=== PATIENT | female | born 1985 | race Caucasian/White ===

== ENCOUNTER 2017-11-27 05:54 | Emergency (ER) | payer OTHER, SELFPAY ==
[2017-11-27 05:55] VITALS: BP 118/80; PULSE 81; RESP 20; TEMP 36.8; O2SAT 100; BMI 29.5
--- NOTE | 2017-11-27 06:02 | ED.VISSUMM ---
- ER Visit Summary Date of Service: 11/27/17 Chief Complaint: [] Esophagus spasm History of Present Illness: The patient is a 32 F with a history of esophagus spasms 1 time per month. She has a sharp substernal chest pain. She took a Valium with minimal relief. She has been seen here frequently for this in the past and GI cocktail always helps her. Comes in for further evaluation. Denies any cardiac PE or dissection risk factors. Denies other medical problems. Current severity is mild to moderate. Physical Examination: [] Vital signs reviewed General: Well-nourished well-developed Head: Normocephalic atraumatic Eyes: Pupils equal round and reactive to light extraocular movements intact ENT: TMs clear no hemotympanum no trauma Neck: Nontender full range of motion Cardiovascular: Regular rate rhythm no murmurs normal S1-S2 Respiratory: No distress clear to auscultation bilaterally chest nontender Abdomen: Soft nontender nondistended normal bowel sounds no masses Back: Nontender no CVA tenderness Extremities: Nontender active range of motion ?4 extremities no trauma Skin: Normal color no trauma Neuro alert oriented cranial nerves II through XII intact normal strength sensation reflexes Test Results: [] Emergency Department Course and Treatment: [] Given GI cocktail pain is resolved after treatment. Will be given viscous lidocaine and will turkey picker Maalox at home which should help her in the future. Treatment Plan: [] Disposition: [] Impression: [] Esophageal spasm recurrent This note was generated with [employer] dictation software. It may contain incorrect words, spelling, and punctuation that were not noted in review of the chart prior to signing ED Disposition - Plan for ED Patient: Disposition: Home or Assisted Living Chief Complaint: Other, Pain/Inj Instructions: ED Spasm Esophageal Prescriptions: Lidocaine 2% Viscous [Xylocaine Viscous] 15 ml PO TID PRN PRN 3 Days udc PRN Reason: Pain Referrals: Buck Welch MD [Primary Care Provider] -
--- NOTE | 2017-11-27 06:06 | DCINST.ED_ITS ---
ED Disposition - Plan for ED Patient: Disposition: Home or Assisted Living Chief Complaint: Other, Pain/Inj Instructions: ED Spasm Esophageal Prescriptions: Lidocaine 2% Viscous [Xylocaine Viscous] 15 ml PO TID PRN PRN 3 Days udc PRN Reason: Pain Referrals: Buck Welch MD [Primary Care Provider] -
[2017-11-27 06:38] VITALS: BP 116/79; PULSE 75; RESP 16; O2SAT 100
== END 2017-11-27 06:41 | disposition home or self-care (01) ==
PROVIDERS: Emergency Provider Emergency Medicine; Family Provider Family Medicine; PCP Family Medicine
DX: K22.4 Dyskinesia of esophagus (principal); Z79.899 Other long term (current) drug therapy
CPT/HCPCS: 99283

== ENCOUNTER 2018-02-11 07:15 | Emergency (ER) | payer OTHER, SELFPAY ==
[2018-02-11 07:15] VITALS: BP 140/91; PULSE 93; RESP 18; TEMP 37.1; O2SAT 99; BMI 29.5
--- NOTE | 2018-02-11 07:32 | ED.DCSUM_ITS ---
- ER Visit Summary Date of Service: 02/11/18 Chief Complaint: Esophageal spasm History of Present Illness: The patient is a 32 F who presents with pain in her epigastric area. Started about an hour and a half ago. Sharp and nonradiating. She has had nausea with vomiting. No diarrhea or constipation. Denies any urinary symptoms. She has a history of esophageal spasm and has had many times before. She tried viscous lidocaine at home but it did not help. Denies any other symptoms. Physical Examination: Vital signs reviewed. HEENT exam unremarkable. Heart is regular rate and rhythm without murmurs. Lungs are clear to auscultation. Abdomen is soft with tenderness in the epigastric area. Extremities reveal no edema. Skin exam normal. Neurologic exam normal. Test Results: None performed Emergency Department Course and Treatment: Patient was given Zofran, Valium and a GI cocktail. She feels much better. She has a follow-up appointment with her PCP today. She will ask them about a referral to a GI specialist for an endoscopy or a possible upper GI series as she has not had one of these in the past Treatment Plan: [] Disposition: Discharge Impression: Esophageal spasm This note was generated with [employer] dictation software. It may contain incorrect words, spelling, and punctuation that were not noted in review of the chart prior to signing ED Disposition - Plan for ED Patient: Chief Complaint: Other, Pain/Inj Referrals: Buck Welch MD [Primary Care Provider] -
[2018-02-11] MEDS: Ondansetron ODT 4 MG Tablet 8 MG PO (07:57)
[2018-02-11] MEDS: diazePAM 5 MG Tablet PO (08:43)
--- NOTE | 2018-02-11 09:24 | ED.DEP ---
ED Disposition - Plan for ED Patient: Disposition: Home or Assisted Living Chief Complaint: Other, Pain/Inj Instructions: ED Spasm Esophageal Referrals: Buck Welch MD [Primary Care Provider] -
[2018-02-11 10:03] VITALS: BP 108/61; PULSE 66; PULSE 68; RESP 18; O2SAT 97
== END 2018-02-11 10:05 | disposition home or self-care (01) ==
PROVIDERS: Emergency Provider Emergency Medicine; Family Provider Family Medicine; PCP Family Medicine
DX: K22.4 Dyskinesia of esophagus (principal); Z72.0 Tobacco use
CPT/HCPCS: 99283

== ENCOUNTER → 2018-03-13 08:25 | Outpatient (CLI) | payer OTHER, SELFPAY ==
--- NOTE | 2018-03-13 08:25 | DT_ITS ---
This patient was seen during an EMR downtime March 11, 2018 - March 18, 2018. This patient may have a combination of paper and electronic documentation or all paper documentation. All documentation is viewable within the e-chart portion of [employer] for each patient visit.
--- NOTE | 2018-03-13 08:50 | RAD_ITS ---
STUDY: AIR-CONTRAST ESOPHAGRAM STUDY REASON FOR EXAM: Female, 32 years old. PAINFUL ESOPHAGEAL SPASMS X 1YEAR, GETTING WORSE RADIATION DOSAGE (If Supplied By Facility): CTDIvol = ( ) mGy, DLP = ( ) mGycm FLUOROSCOPY TIME (if supplied): (0:30) minutes/seconds, 12 images. TECHNIQUE: Barium pill swallow with sips of water is performed at the beginning of the study without difficulty. Multiple barium swallows were performed under fluoroscopic monitoring. Multiple views of the esophagus, the upper stomach were performed. COMPARISON: None. FINDINGS: Barium pill swallow with sips of water is performed at the beginning of the study without difficulty. The esophagus appears normal in size and shape it shows unremarkable mucosal pattern. There is no evidence of hiatal hernia or abnormal vascular compression. RAD/Esophagus Only IMPRESSION: Unremarkable study. Electronically Signed: Elio Wagoner MD at 13:19 EDT Tel , Service support ,
== END ==
PROVIDERS: Family Provider Family Medicine; PCP Family Medicine; Visit Provider Nurse Practitioner Adult Health
DX: K22.4 Dyskinesia of esophagus (principal)
CPT/HCPCS: 74220

== ENCOUNTER 2018-05-06 13:05 | Emergency (ER) | payer OTHER, SELFPAY ==
[2018-05-06 13:06] VITALS: BP 123/78; PULSE 123; RESP 16; TEMP 36.8; O2SAT 98; BMI 28.0
[2018-05-06] MEDS: 0.9% Normal Saline 1,000 ML 1000 ML IV ×2 (13:42→14:59)
[2018-05-06] MEDS: Ketorolac 30 MG/ML Syringe IV (13:43)
[2018-05-06] MEDS: Ondansetron 4 MG/2 ML Vial IV (13:43)
[2018-05-06] MEDS: Diphenoxylate/Atrop 1 Tablet PO (15:09)
[2018-05-06] MEDS: proMETHazine 25 MG/ML Syringe 6.25 MG IV (15:09)
[2018-05-06 15:11] VITALS: BP 120/72; PULSE 69; RESP 18; O2SAT 99
[2018-05-06 15:41] LABS: Red Blood Cells-Urine 0 SEEN /hpf (0-5)
[2018-05-06 15:54] LABS: Color, Urine Yellow (Yellow); Glucose, Dipstick Normal (Normal); Ketone-Dipstick 5 mg/dl (Negative); Leukocyte Esterase-Dipstick 25 /ul (Negative); Nitrite-Dipstick Negative (Negative); Occult Blood-Urine 10 /ul (Negative); Protein-Dipstick 30 mg/dl (Negative); Urine Clarity Cloudy (Clear); Urine Urobilinogen Normal (Normal)
[2018-05-06 15:59] LABS: Urine Bilirubin Dipstick 1 mg/dL (Negative)
[2018-05-06 16:20] LABS: Bacteria 2+ /hpf (None Seen); Mucous, Urine 4+ /hpf (<or=2+); Squamous Epithelial Cells - UA 5-10 SEEN /hpf (5-10); White Blood Cells 0-5 SEEN /hpf (0-5)
--- NOTE | 2018-05-06 16:44 | ED.DCSUM_ITS ---
- ER Visit Summary Date of Service: 05/06/18 Chief Complaint: Vomiting and diarrhea History of Present Illness: The patient is a [address] Welch. She reports that she has vomiting and diarrhea that began this morning. States she is vomited approximate 10 times. No blood or emesis. She had 10 episodes of watery diarrhea. No blood in her stools or black tarry stools. She reports that she has crampy diffuse abdominal pain Zeta 10 at worst and 7-10 currently. Is worsened by nothing relieved by nothing. She denies any dysuria or frequency. Last menstrual was 1 week ago. No vaginal bleeding or discharge. Patient reports that her son was sick with a similar complaints 2 days ago. Has not been camping out of the country. No possible bad food exposure. Does not drink well water. No recent antibiotic use. Physical Examination: Vitals: Stable. Afebrile. General: Well-nourished and well-developed. Head: Normocephalic atraumatic. Neck: Supple, no lymphadenopathy. No JVD. Nontender. Cardiovascular: Regular rate and rhythm. No murmurs. Respiratory: No respiratory distress. Clear to auscultation bilaterally. Abdominal: Soft, mild diffuse tenderness to palpation, nondistended, normal bowel sounds. No guarding, rebound, or peritoneal signs. Back: Nontender. Extremities: Nontender, no edema. Skin: Normal color, no rash. Neurologic: Alert and oriented ?3. Cranial nerves II through XII are intact. Normal strength and sensation. Psych: Normal affect. Test Results: UA is negative. Emergency Department Course and Treatment: Patient was given 2 L normal saline. She was given Zofran, Phenergan, Toradol IV. She was given Lomotil p.o. Her heart rate has gone from the 120s to the 60s. She is resting comfortably. Treatment Plan: Patient will be discharged with Zofran. Instructed to follow- up her primary care physician in 1-2 days if not improving. Return to the emergency department for any worsening symptoms. Disposition: To home in improved and stable condition. Impression: 1. Vomiting/diarrhea. This note was generated with [employer] software. It may contain incorrect words, spelling, and punctuation that were not noted in review of the chart prior to signing ED Disposition - Plan for ED Patient: Chief Complaint: Nausea/Vomiting/Diarrhea Instructions: ED Food Poison Or Gastroenteritis Prescriptions: Ondansetron [Zofran Odt] 4 mg PO Q8H PRN PRN #10 tablet PRN Reason: Nausea Referrals: Buck Welch MD [Primary Care Provider] - 1-2 Days if not improving
== END 2018-05-06 16:56 | disposition home or self-care (01) ==
PROVIDERS: Emergency Provider Emergency Medicine; Family Provider Family Medicine; PCP Family Medicine
DX: R11.2 Nausea with vomiting, unspecified (principal); R19.7 Diarrhea, unspecified; R10.84 Generalized abdominal pain; F17.200 Nicotine dependence, unspecified, uncomplicated
CPT/HCPCS: 81001; 96361; 96374; 96375; 99284; J7030; A4216; J2405

== ENCOUNTER 2018-07-20 02:04 | Emergency (ER) | payer OTHER, SELFPAY ==
[2018-07-20 02:06] VITALS: BP 121/89; PULSE 120; RESP 20; TEMP 36.9; O2SAT 96; BMI 28.5
--- NOTE | 2018-07-20 02:20 | RAD_ITS ---
STUDY: X-RAY - LEFT ANKLE REASON FOR EXAM: Female, 32 years old. Injury TECHNIQUE: 3 view(s) of the ankle. COMPARISON: None. FINDINGS: There is mild swelling of the ankle but no acute fractures or dislocations. The ankle mortise and the subtalar joints are within normal limits. RAD/Ankle min 3 Views IMPRESSION: No fracture. Mild ankle swelling. Electronically Signed: Gordon Nobles MD at 2:35 EDT Tel , Service support ,
--- NOTE | 2018-07-20 02:40 | ED.VISSUMM ---
- ER Visit Summary Date of Service: 07/20/18 Chief Complaint: [] Injury to left ankle History of Present Illness: The patient is a 32 F [] who was walking up the steps and caught her foot and felt a pop in her left lateral ankle. It happened 2 hours ago. Hurts to move. She has been limping. No previous injury. No home treatment. Physical Examination: [] Vital signs reviewed General: Well-nourished well-developed Head: Normocephalic atraumatic Eyes: Pupils equal round and reactive to light extraocular movements intact ENT: TMs clear no hemotympanum no trauma Neck: Nontender full range of motion Cardiovascular: Regular rate rhythm no murmurs normal S1-S2 Respiratory: No distress clear to auscultation bilaterally chest nontender Abdomen: Soft nontender nondistended normal bowel sounds no masses Back: Nontender no CVA tenderness Extremities: Tenderness isolated to the left lateral malleolus with decreased range of motion of the ankle secondary to pain. No swelling or deformity. No foot pain. Achilles intact Skin: Normal color no trauma Neuro alert oriented cranial nerves II through XII intact normal strength sensation reflexes Test Results: [] Emergency Department Course and Treatment: [] X-ray of the ankle negative. Given ibuprofen ice and Aircast. At this time I think she sprained her ankle Treatment Plan: [] Disposition: [] Impression: [] Left ankle sprain This note was generated with [employer] dictation software. It may contain incorrect words, spelling, and punctuation that were not noted in review of the chart prior to signing ED Disposition - Plan for ED Patient: Chief Complaint: Lower Extremity Injury Referrals: Buck Welch MD [Primary Care Provider] -
--- NOTE | 2018-07-20 02:41 | ED.DEP ---
ED Disposition - Plan for ED Patient: Disposition: Home or Assisted Living Chief Complaint: Lower Extremity Injury Instructions: ED Sprain Ankle W X Ray Referrals: Buck Welch MD [Primary Care Provider] -
[2018-07-20] MEDS: Ibuprofen 400 MG Tablet 800 MG PO (02:57)
[2018-07-20 03:01] VITALS: RESP 18
== END 2018-07-20 03:03 | disposition home or self-care (01) ==
PROVIDERS: Emergency Provider Emergency Medicine; Family Provider Family Medicine; PCP Family Medicine
DX: S93.402A Sprain of unspecified ligament of left ankle, initial encounter (principal); X58.XXXA Exposure to other specified factors, initial encounter; Y93.01 Activity, walking, marching and hiking; Y92.9 Unspecified place or not applicable; Z72.0 Tobacco use
CPT/HCPCS: 73610; 99283

== ENCOUNTER 2018-08-26 15:37 | Emergency (ER) | payer OTHER, SELFPAY ==
[2018-08-26 15:39] VITALS: BP 125/88; PULSE 94; RESP 18; TEMP 37.1; O2SAT 97; BMI 28.6
--- NOTE | 2018-08-26 15:48 | ED.VISSUMM ---
- ER Visit Summary Date of Service: 08/26/18 Chief Complaint: Nosebleed History of Present Illness: The patient is a 33 F presents to the emergency department nosebleed. Patient states that it started suddenly about 30 minutes ago. She has no history of nosebleed. She does not take anticoagulants. She denies any injury. She has not had any recent upper respiratory symptoms. She states just started to bleed. She thought was coming out of both sides. She thinks the left side stopped, but the right side continues to bleed. Physical Examination: Exam is relatively unremarkable. The patient does have epistaxis that appears to be coming from the right right naris. There is no evidence of posterior bleed. There is no significant active bleeding. Neck is supple. Oropharynx is widely patent. Rest of exam unremarkable. Test Results: [] Emergency Department Course and Treatment: Plan was to Place Afrin on a cotton pledget into the naris, but the patient had spontaneously stopped bleeding. She was given intranasal Afrin and a clamp was placed. She was observed. She had no further bleeding. I did not reinspect the nose, and I do not see any active bleeding. At this time, the patient is not on anticoagulants. She has no trauma. I do not see a visible vessel that would require cautery. I do feel that she is safe for discharge. She will be given Afrin to continue twice a day for the next 5 days. She will also be given a nasal clamp if she has any rebleeding. She will be given outpatient ENT follow-up as needed. Treatment Plan: [] Disposition: Discharge Impression: Epistaxis-resolved This note was generated with [employer] dictation software. It may contain incorrect words, spelling, and punctuation that were not noted in review of the chart prior to signing ED Disposition - Plan for ED Patient: Chief Complaint: Nosebleed Instructions: Nosebleed Referrals: Juan East MD [STAFF PHYSICIAN] - As Needed
[2018-08-26] MEDS: Oxymetazoline 0.05% 1 SPRAY SPRAY.BTL 2 SPRAY NASAL (16:11)
--- NOTE | 2018-08-26 16:20 | NURSING ---
BLEEDING HAS STOPPED. WILL CONTINUE TO MONITOR.
[2018-08-26 16:26] VITALS: RESP 16
--- NOTE | 2018-08-26 16:27 | ED.RN ---
REVIEWED D/C INSTRUCTIONS, FOLLOW UP CARE, AND S/S THAT WOULD WARRANT A RETURN TO THE ED WITH PT. PT VERBALIZED AN UNDERSTANDING AND DENIES FURTHER QUESTIONS FOR THIS RN. PT SKIN P/W/D, RESP EVEN AND UNLABORED, PT A&O X 3, NO DISTRESS NOTED. PT AMBULATED OUT OF ED, GAIT STEADY.
== END 2018-08-26 16:28 | disposition home or self-care (01) ==
LOC: ED 16:08
PROVIDERS: Emergency Provider Emergency Medicine; Family Provider Family Medicine; PCP Family Medicine
DX: R04.0 Epistaxis (principal); Z72.0 Tobacco use
CPT/HCPCS: 30901; 99282

== ENCOUNTER → 2019-04-02 | Outpatient (CLI) | payer OTHER, SELFPAY ==
[2019-04-02 09:24] VITALS: BMI 29.2
[2019-04-02 10:01] LABS: Absolute Lymphocyte Count 1.71 X10^3/ul (0.83-4.51); Absolute Neutrophil Count 3.7 X10^3/uL (2.0-7.7); Basophil# 0.02 X10^3/uL; Basophil% 0.3 % (0-1); Eosinophils% 1.6 % (0-5); Hematocrit 44.4 % (37-47); Hemoglobin 15.3 g/dl (12.0-15.0); Lymphocyte # 1.71 X10^3/ul (4.0); Lymphocyte % 27.8 % (19-41); Mean Corp Hgb Conc 34.5 g/gl (32-36); Mean Corpuscular Hgb 31.2 pg (27.0-32.0); Mean Corpuscular Volume 90.4 fL (81-99); Mean Platelet Vol. 10.7 fl (6.2-12.0); Monocyte# 0.63 X10^3/uL; Monocyte% 10.2 % (0-10); Neutrophil # 3.68 X10^3/uL (2.7-7.7); Neutrophil % 59.9 % (47-70); POSITIVE COUNT NO; POSITIVE DIFFERENTIAL NO; POSITIVE MORPHOLOGY NO; Platelet Count 240 K/mm3 (150-450); RBC Distribution Width CV 13.4 % (11.6-14.6); RBC Distribution Width SD 44.3 fl (35.1-43.9); Red Blood Count 4.91 M/mm3 (4.2-5.4); White Blood Count 6.2 K/mm3 (4.4-11.0)
== END | disposition home or self-care (01) ==
LOC: PAVLAB 09:48
PROVIDERS: Family Provider Family Medicine; PCP Family Medicine; Referring Provider Nurse Practitioner Women's Health; Visit Provider Nurse Practitioner Women's Health
DX: N92.0 Excessive and frequent menstruation with regular cycle (principal)
CPT/HCPCS: 36415; 84443; 85025

== ENCOUNTER → 2019-04-03 | Outpatient (CLI) | payer OTHER, SELFPAY ==
[2019-04-02 09:24] VITALS: BMI 29.2
--- NOTE | 2019-04-03 14:03 | US_ITS ---
STUDY: ULTRASOUND TRANSVAGINAL CLINICAL: Female, 33 years old. TECHNIQUE: Transvaginal COMPARISON: None. FINDINGS: Transvaginal and transabdominal ultrasound of the pelvis were obtained. The uterus measures 8.4 x 5.1 x 3.8 cm. A small fibroid measures 1.2 x 1.2 cm subserosal in location posteriorly. The endometrium thickness measures 1 cm. The right ovary measures 4.6 x 2.5 x 2.6 cm with multiple follicles the largest is 2.3 x 1 cm. The left ovary measures 3 x 2.2 x 1.3 cm with small follicles. No evidence of adnexal masses noted. No free fluid in the cul-de-sac US/Pelvic (Non ) IMPRESSION: Negative study except for small small fibroid. Electronically Signed: Rima Palacio, at 13:10 EDT Tel , Service support ,
--- NOTE | 2019-04-03 14:03 | US_ITS ---
STUDY: ULTRASOUND TRANSVAGINAL CLINICAL: Female, 33 years old. TECHNIQUE: Transvaginal COMPARISON: None. FINDINGS: Transvaginal and transabdominal ultrasound of the pelvis were obtained. The uterus measures 8.4 x 5.1 x 3.8 cm. A small fibroid measures 1.2 x 1.2 cm subserosal in location posteriorly. The endometrium thickness measures 1 cm. The right ovary measures 4.6 x 2.5 x 2.6 cm with multiple follicles the largest is 2.3 x 1 cm. The left ovary measures 3 x 2.2 x 1.3 cm with small follicles. No evidence of adnexal masses noted. No free fluid in the cul-de-sac US/Transvaginal Non- IMPRESSION: Negative study except for small small fibroid. Electronically Signed: Rima Palacio, at 13:10 EDT Tel , Service support ,
== END | disposition home or self-care (01) ==
PROVIDERS: Family Provider Family Medicine; PCP Family Medicine; Referring Provider Nurse Practitioner Women's Health; Visit Provider Nurse Practitioner Women's Health
DX: N92.0 Excessive and frequent menstruation with regular cycle (principal)
CPT/HCPCS: 76830; 76856; 93976

== ENCOUNTER → 2019-05-27 | Outpatient (CLI) | payer OTHER, SELFPAY ==
[2019-05-27 09:44] VITALS: BMI 29.2
[2019-05-30 14:27] LABS: HPV APTIMA, High Risk Negative (Negative)
== END | disposition home or self-care (01) ==
LOC: LABSPEC 16:29
PROVIDERS: Family Provider Family Medicine; PCP Family Medicine; Referring Provider Nurse Practitioner Women's Health; Visit Provider Nurse Practitioner Women's Health
DX: Z12.4 Encounter for screening for malignant neoplasm of cervix (principal)
CPT/HCPCS: 87624; 88175; G0145

== ENCOUNTER 2019-07-15 05:50 | Emergency (ER) | payer OTHER, SELFPAY ==
[2019-05-27 09:44] VITALS: BMI 29.2
[2019-07-15 05:51] VITALS: BP 138/95; PULSE 91; RESP 18; TEMP 36.7; O2SAT 100; BMI 28.1
--- NOTE | 2019-07-15 06:00 | ED.VIS.GEN ---
History of Present Illness Informant: Patient Narrative: She presents with esophageal spasm. She stated that approximately 6 hours ago she started having some burning pain in her esophagus region. She feels in the front and the back as well. This is similar to previous esophageal spasms that she is been dealing with for years. She tried a benzodiazepine as well as hycosamine change to have symptoms. She vomited twice at home. Current severity is mild to moderate. She has seen GI as well as her family doctor for this in the past. This is a long-standing diagnosis. <Matti Benitez - Last Filed: 07/15/19 06:50> <Carmencita Doyle - Last Filed: 07/15/19 09:30> Chief Complaint: Nausea/Vomiting - Past Medical History (1) Abnormal uterine bleeding Status: Acute Comment: discussed options, failing aygestin, switch to ocp for now and plan [facility] BS (2) Dysmenorrhea Status: Acute Comment: discussed options, failing aygestin, switch to ocp for now and plan [facility] BS <Matti Benitez - Last Filed: 07/15/19 06:50> Past Medical History Prior records reviewed: Yes Past Medical History: - - See problem list, esophageal spasm Surgical History: noncontributory Smoking Status: Current every day smoker Alcohol: None Drugs: None <Matti Benitez - Last Filed: 07/15/19 06:50> <Carmencita Doyle - Last Filed: 07/15/19 09:30> - Allergies and Home Meds Allergies/Adverse Reactions: Allergies Penicillins Allergy (Verified 07/15/19 05:53) Swelling Sulfa (Sulfonamide Antibiotics) Allergy (Verified 07/15/19 05:53) Swelling Primary Care Physician: Buck Welch MD [Primary Care Provider] - Review of Systems General: Denies: Chills, Fever, Sweats Eyes: Denies: Visual changes - bilaterally, Diplopia ENT: Denies: Rhinorrhea, Sore throat Cardiovascular: Reports: Chest pain. Denies: Palpitations Respiratory: Denies: Dyspnea, Cough, Dyspnea on exertion Gastrointestinal: Reports: Nausea, Vomiting. Denies: Abdominal pain, Diarrhea, Melena, Hematochezia Genitourinary: Denies: Dysuria, Hematuria, Frequency Musculoskeletal: Reports: Back pain. Denies: Extremity Pain Skin: Denies: Rash, Wounds Neurological: Denies: Headache, Weakness, Numbness <Matti Benitez - Last Filed: 07/15/19 06:50> Physical Exam Vital Signs/Narrative: Vital Signs Temp Pulse Resp BP Pulse Ox 07/15/19 05:51 98.0 F 91 18 138/95 H 100 General: Well nourished, Well developed, No Acute Distress Head: Normocephalic, Atraumatic Eyes: Perrl, EOMI ENT: Moist mucous membranes, No rhinorrhea Neck: Supple, Nontender Cardiovascular: Regular rate, Regular rhythm, No murmurs Respiratory: No distress, CTA bilaterally, Chest nontender Abdomen: Soft, Nontender, Nondistended, Normal bowel sounds Back: Nontender, Normal Inspection Extremities: Nontender, No edema Skin: Normal color, No rash Neurological: Alert, Oriented x3, Cranial nerves II-XII grossly intact, Normal Strength, Normal Sensation Psychological: Normal affect, Normal Mood <Matti Benitez - Last Filed: 07/15/19 06:50> Vital Signs/Narrative: Vital Signs Temp Pulse Resp BP Pulse Ox 07/15/19 05:51 98.0 F 91 18 138/95 H 100 <Carmencita Doyle - Last Filed: 07/15/19 09:30> Diagnostic/Tx/Re-eval - Medical Decision Making Requested GI cocktail and Zofran. These were given. On reevaluation the patient felt better initially but then her symptoms came back. She was then given a dose of morphine and Ativan. The patient will be reevaluated by the oncoming morning physician. At this time I still think she has esophageal spasms <Matti Benitez - Last Filed: 07/15/19 06:50> Chest X-Ray - ED: 1 View, Read by ED Physician, Normal, Heart, Lungs, Mediastinum, Bony Structures, No Acute Disease 07/15/19 07:50 Chest 1 View (Portable) [RAD] Stat Laboratory Results 07/15/19 07/15/19 07/15/19 08:07 08:07 08:07 WBC 10.4 RBC 4.54 Hgb 13.5 Hct 41.0 MCV 90.3 MCH 29.7 MCHC 32.9 RDW Std Deviation 40.5 RDW Coeff of Júnior 12.4 Plt Count 261 MPV 11.1 Immature Gran % (Auto) 0.400 Neut % (Auto) 76.2 H Lymph % (Auto) 15.[address] [place] % (Auto) 6.8 Eos % (Auto) 1.0 Baso % (Auto) 0.3 Absolute Neuts (auto) 7.9 H Absolute Lymphs (auto) 1.59 Nucleated RBC % 0 D-Dimer Quant (PE/DVT) 0.41 Sodium 141 Potassium 3.8 Chloride 105 Carbon Dioxide 27.0 Anion Gap 9 BUN 13 Creatinine 0.79 Estim Creat Clear Calc 89.10 Est GFR (MDRD) Af Amer 109 Est GFR (MDRD) Non-Af 90 BUN/Creatinine Ratio 16.5 Glucose 104 Calcium 8.7 Troponin I < 0.015 Serum , Qual 07/15/19 08:07 WBC RBC Hgb Hct MCV MCH MCHC RDW Std Deviation RDW Coeff of Júnior Plt Count MPV Immature Gran % (Auto) Neut % (Auto) Lymph % (Auto) [place] % (Auto) Eos % (Auto) Baso % (Auto) Absolute Neuts (auto) Absolute Lymphs (auto) Nucleated RBC % D-Dimer Quant (PE/DVT) Sodium Potassium Chloride Carbon Dioxide Anion Gap BUN Creatinine Estim Creat Clear Calc Est GFR (MDRD) Af Amer Est GFR (MDRD) Non-Af BUN/Creatinine Ratio Glucose Calcium Troponin I Serum , Qual NEGATIVE - EKG Initial EKG Interpretation: Sinus Rhythm - Sinus at 69 with no acute ischemia. - Medical Decision Making Patient was signed out to me pending repeat evaluation after Ativan and Dilaudid. When I enter the room patient is awake. She tells me that she still is having significant pain although it is slightly improved. She states this episode is significantly worse than any of her prior esophageal spasm episodes. She states that started down the center of her chest and wraps around the right side of her chest. She has no personal cardiac history. She did have travel 1 month ago to [place] and back. No personal history of DVTs in her legs have not been swollen or sore. In light of pain not being relieved with GI cocktail, Dilaudid, or Ativan, patient will undergo evaluation for cardiac and pulmonary cause of her symptoms. EKG and lab work are unremarkable. Normal troponin and d-dimer. Patient was given a dose of Toradol. On repeat evaluation she is resting comfortably. Test results are discussed with her and she is reassured with these findings. She will be discharged as per Dr. Benitez's plan. Disposition: Discharge Impression: Atypical chest pain <Carmencita Doyle - Last Filed: 07/15/19 09:30> ED Disposition <Matti Benitez - Last Filed: 07/15/19 06:50> <Carmencita Doyle - Last Filed: 07/15/19 09:30> - Plan for ED Patient: Disposition: Home or Assisted Living Diagnosis: Esophageal spasm Instructions: Esophageal Spasm Prescriptions: Ondansetron [Zofran Odt] 4 mg PO Q8H PRN PRN #10 tab PRN Reason: Nausea Prescription Printed Referrals: Buck Welch MD [Primary Care Provider] -
[2019-07-15] MEDS: Mag Hydrox/Al Hydrox/Simeth 30 ML UDC PO (06:05)
[2019-07-15] MEDS: Ondansetron ODT 4 MG Tablet 8 MG PO (06:05)
[2019-07-15] MEDS: LORazepam 2 MG/ML Syringe 1 MG IV (06:58)
[2019-07-15] MEDS: HYDROmorphone 1 MG/ML Syringe IV (06:58)
--- NOTE | 2019-07-15 07:50 | RAD_ITS ---
STUDY: X-RAY CHEST REASON FOR EXAM: Female, 33 years old. Chest pain TECHNIQUE: Single AP portable view of the chest. COMPARISON: July 09, 2017 FINDINGS: The lungs are clear and expanded. There is no demonstrated pleural abnormality. Normal size heart. Normal mediastinum and ximena. Normal visualized pulmonary arteries. Normal visualized aortic arch and descending thoracic aorta. Normal visualized thoracic spine. Normal visualized ribs, clavicles, and shoulders. There is no demonstrated abnormality of the visualized soft tissue structures of the upper abdomen. RAD/Chest 1 View (Portable) IMPRESSION: Normal x-ray examination of the chest. Electronically Signed: Montse Barker MD at 9:54 EDT , Service support ,
--- NOTE | 2019-07-15 07:50 | EKG12_ITS ---
Test Reason : NAUSEA/VOMITING Blood Pressure : / mmHG Vent. Rate : 069 BPM Atrial Rate : 069 BPM P-R Int : 142 ms QRS Dur : 088 ms QT Int : 400 ms P-R-T Axes : 016 039 018 degrees QTc Int : 428 ms Normal sinus rhythm with sinus arrhythmia Normal ECG Confirmed by ADARSH PASCAL ([id number]), mapping editor KANCHAN AHYS ([id number]) on 07/21/2019 3:39:53 PM Referred By: STEPAN Confirmed By:ADARSH PASCAL
[2019-07-15 08:06] VITALS: BP 128/91; PULSE 70; RESP 15; O2SAT 100
[2019-07-15] MEDS: Ketorolac 30 MG/ML Syringe IV (08:07)
[2019-07-15 08:30] LABS: Absolute Lymphocyte Count 1.59 X10^3/uL (0.83-4.51); Absolute Neutrophil Count 7.9 X10^3/uL (2.0-7.7); Basophil# 0.03 X10^3/uL; Basophil% 0.3 % (0-1); Hemoglobin 13.5 g/dL (12.0-15.0); Lymphocyte # 1.59 X10^3/ul (4.0); Lymphocyte % 15.3 % (19-41); Mean Corp Hgb Conc 32.9 g/dL (32-36); Mean Corpuscular Hgb 29.7 pg (27.0-32.0); Mean Corpuscular Volume 90.3 fL (81-99); Mean Platelet Vol. 11.1 fl (6.2-12.0); Monocyte% 6.8 % (0-10); NRBC Flagged by Analyzer 0 % (0-5); Neutrophil # 7.91 X10^3/uL (2.7-7.7); Neutrophil % 76.2 % (47-70); Platelet Count 261 K/mm3 (150-450); RBC Distribution Width CV 12.4 % (11.6-14.6); RBC Distribution Width SD 40.5 fl (35.1-43.9); Red Blood Count 4.54 M/mm3 (4.2-5.4); White Blood Count 10.4 K/mm3 (4.4-11.0)
[2019-07-15 08:33] LABS: Internal QC Validated? YES +Cl - CLEAR BKGD; Pregnancy, Serum, hCG Quali. NEGATIVE Negative
[2019-07-15 08:46] LABS: Anion Gap 9 (5-15); BUN 13 mg/dL (7-18); BUN/Creat Ratio 16.5 RATIO (10-20); Calcium,Total 8.7 mg/dL (8.5-10.1); Chloride 105 mmol/L (98-107); Creatinine, Serum 0.79 mg/dL (0.55-1.02); EST Glomerular Filtration Rate 90 mL/min (>60); Est Glom Filt Rate - Afr Amer 109 mL/min (>60); Glucose 104 mg/dL (74-106); Potassium 3.8 mmol/L (3.5-5.1); Sodium Level 141 mmol/L (136-145)
[2019-07-15 08:53] LABS: D-Dimer Quantitative (DVT/PE) 0.41 FEU/ug/m (0.27-0.49)
[2019-07-15 09:40] VITALS: BP 97/84; PULSE 62; RESP 15; O2SAT 99
== END 2019-07-15 09:42 | disposition home or self-care (01) ==
PROVIDERS: Emergency Provider Emergency Medicine; Family Provider Family Medicine; PCP Family Medicine
DX: K22.4 Dyskinesia of esophagus (principal); F17.200 Nicotine dependence, unspecified, uncomplicated
CPT/HCPCS: 71045; 80048; 84484; 84703; 85025; 85379; 93005; 96361; 96374; 96375; 99284; J7040; A4216

== ENCOUNTER 2019-07-17 04:45 | Emergency (ER) | payer OTHER, SELFPAY ==
[2019-07-17 04:47] VITALS: BP 145/123; PULSE 91; RESP 18; TEMP 36.5; O2SAT 99; BMI 27.4
--- NOTE | 2019-07-17 05:04 | ED.VIS.GEN ---
History of Present Illness Chief Complaint: Nausea/Vomiting Informant: Patient Onset: Yesterday Narrative: Recurrent vomiting since 7 PM last night. Unable to keep things down. No diarrhea. No fevers. History of esophageal spasms past 3 years. Followed by GI, endoscopy this past October along with barium swallow that was normal per patient. Patient on Levsin, took his evening with no relief. States abdominal cramping throughout due to vomiting. Has a pending total hysterectomy at the end of the month. She was seen 2 days ago for similar. Records reviewed, similar presentation and symptoms, symptoms did not relieved with Zofran and GI cocktail. Was given Ativan morphine, had cardiac work-up. PE rule out that were negative with a d-dimer. Prior similar symptoms: Yes Past Medical History - Allergies and Home Meds Allergies/Adverse Reactions: Allergies Penicillins Allergy (Verified 07/15/19 05:53) Swelling Sulfa (Sulfonamide Antibiotics) Allergy (Verified 07/15/19 05:53) Swelling Primary Care Physician: Buck Welch MD [Primary Care Provider] - Surgical History: noncontributory Smoking Status: Current every day smoker Review of Systems General: Denies: Chills, Fever, Sweats Eyes: Denies: Visual changes - bilaterally, Diplopia ENT: Denies: Rhinorrhea, Sore throat Cardiovascular: Denies: Chest pain, Palpitations Respiratory: Denies: Dyspnea, Cough, Dyspnea on exertion Gastrointestinal: Reports: Abdominal pain, Nausea, Vomiting. Denies: Diarrhea, Melena, Hematochezia Genitourinary: Denies: Dysuria, Hematuria, Frequency Musculoskeletal: Denies: Back pain, Extremity Pain Skin: Denies: Rash, Wounds Neurological: Denies: Headache, Weakness, Numbness Physical Exam Vital Signs/Narrative: Vital Signs Temp Pulse Resp BP Pulse Ox 07/17/19 04:47 97.7 F L 91 18 145/123 H 99 Inital Vital Signs reviewed: Yes General: Well nourished, Well developed, No Acute Distress Head: Normocephalic, Atraumatic Eyes: Perrl, EOMI ENT: Moist mucous membranes, No rhinorrhea Neck: Supple, Nontender Cardiovascular: Regular rate, Regular rhythm, No murmurs Respiratory: No distress, CTA bilaterally, Chest nontender Abdomen: Soft, Nondistended, Normal bowel sounds, - - Generalized tenderness without guarding or rebound. Negative for: Vences's sign Back: Nontender, Normal Inspection Extremities: Nontender, No edema Skin: Normal color, No rash Neurological: Alert, Oriented x3, Cranial nerves II-XII grossly intact, Normal Strength, Normal Sensation Psychological: Normal affect, Normal Mood Diagnostic/Tx/Re-eval Abnormal Lab Results 07/17/19 07/17/19 07/17/19 04:54 04:54 04:54 WBC 10.5 RBC 4.80 Hgb 14.5 Hct 42.9 MCV 89.4 MCH 30.2 MCHC 33.8 RDW Std Deviation 38.9 RDW Coeff of Júnior 12.0 Plt Count 290 MPV 10.7 Immature Gran % (Auto) 0.300 Neut % (Auto) 74.7 H Lymph % (Auto) 17.2 L Mcdowell % (Auto) 6.6 Eos % (Auto) 0.8 Baso % (Auto) 0.4 Absolute Neuts (auto) 7.9 H Absolute Lymphs (auto) 1.81 Nucleated RBC % 0 Sodium 143 Potassium 3.6 Chloride 105 Carbon Dioxide 27.0 Anion Gap 11 BUN 10 Creatinine 0.83 Estim Creat Clear Calc 84.81 Est GFR (MDRD) Af Amer 103 Est GFR (MDRD) Non-Af 85 BUN/Creatinine Ratio 12.0 Glucose 109 H Calcium 9.1 Total Bilirubin 0.40 AST 19 ALT 47 Alkaline Phosphatase 60 Total Protein 7.8 Albumin 4.0 Globulin 3.8 Albumin/Globulin Ratio 1.1 Lipase 129 Serum , Qual NEGATIVE - Medical Decision Making Vital signs stable, nonsurgical abdomen. History of esophageal spasms, given IV fluids, Zofran, Ativan IV. Abdominal labs and hCG are negative. Reevaluation mild improvement of symptoms. She reports some discomfort in the right side of her chest. Given GI cocktail minimal improvement however also was given Haldol with her nausea vomiting symptoms which did help this. She was reported still discomfort, from 2 days ago she was given Toradol which helped her symptoms. She has esophageal spasm and not gastritis therefore this was given. She will monitor symptoms she will call her GI doctor which she follows Shantelle Lehman for outpatient reevaluation. She has diazepam and Levsin and Zofran to use as needed. All questions were answered. ED Disposition - Plan for ED Patient: Disposition: Home or Assisted Living Diagnosis: Esophageal spasm, Nausea and vomiting Instructions: VOMITING (8y-Adult), Esophageal Spasm Referrals: Buck Welch MD [Primary Care Provider] - Additional Instructions: Call your doctor for follow up re-evaluation.
[2019-07-17 05:08] LABS: Absolute Lymphocyte Count 1.81 X10^3/uL (0.83-4.51); Absolute Neutrophil Count 7.9 X10^3/uL (2.0-7.7); Basophil# 0.04 X10^3/uL; Basophil% 0.4 % (0-1); Eosinophil# 0.08 X10^3/uL; Eosinophils% 0.8 % (0-5); Hematocrit 42.9 % (37-47); Hemoglobin 14.5 g/dL (12.0-15.0); Lymphocyte # 1.81 X10^3/ul (4.0); Lymphocyte % 17.2 % (19-41); Mean Corp Hgb Conc 33.8 g/dL (32-36); Mean Corpuscular Hgb 30.2 pg (27.0-32.0); Mean Corpuscular Volume 89.4 fL (81-99); Mean Platelet Vol. 10.7 fl (6.2-12.0); Monocyte# 0.69 X10^3/uL; Monocyte% 6.6 % (0-10); NRBC Flagged by Analyzer 0 % (0-5); Neutrophil # 7.85 X10^3/uL (2.7-7.7); Neutrophil % 74.7 % (47-70); Platelet Count 290 K/mm3 (150-450); RBC Distribution Width SD 38.9 fl (35.1-43.9); White Blood Count 10.5 K/mm3 (4.4-11.0)
[2019-07-17] MEDS: 0.9% Normal Saline 1,000 ML 1000 ML IV (05:08)
[2019-07-17] MEDS: Ondansetron 4 MG/2 ML Vial IV (05:08)
[2019-07-17] MEDS: LORazepam 2 MG/ML Syringe 1 MG IV (05:08)
[2019-07-17 05:17] LABS: Internal QC Validated? YES +Cl - CLEAR BKGD; Pregnancy, Serum, hCG Quali. NEGATIVE Negative
[2019-07-17 05:22] LABS: ALB/GLOB Ratio 1.1 RATIO (0.9-2.4); AST(SGOT) 19 U/L (15-37); Alanine Aminotransfer ALT/SGPT 47 U/L (13-56); Alkaline Phosphatase 60 U/L (45-117); Anion Gap 11 (5-15); BUN 10 mg/dL (7-18); Calcium,Total 9.1 mg/dL (8.5-10.1); Chloride 105 mmol/L (98-107); Creatinine, Serum 0.83 mg/dL (0.55-1.02); EST Glomerular Filtration Rate 85 mL/min (>60); Est Glom Filt Rate - Afr Amer 103 mL/min (>60); Estimated Creatinine Clearance 84.81 ml/min; Globulin 3.8 g/dL (2.2-4.2); Glucose 109 mg/dL (74-106); Lipase 129 U/L (73-393); Potassium 3.6 mmol/L (3.5-5.1); Protein, Total 7.8 g/dL (6.4-8.2); Sodium Level 143 mmol/L (136-145)
[2019-07-17] MEDS: Haloperidol Lactate 5 MG/ML Vial 1 MG IV (05:45)
[2019-07-17] MEDS: Mag Hydrox/Al Hydrox/Simeth 30 ML UDC PO (05:46)
[2019-07-17 06:51] VITALS: BP 135/93; PULSE 69; RESP 16; O2SAT 97
[2019-07-17] MEDS: Ketorolac 30 MG/ML Syringe IV (06:51)
[2019-07-17 07:32] VITALS: BP 131/99; PULSE 89; RESP 12; O2SAT 99
== END 2019-07-17 07:33 | disposition home or self-care (01) ==
PROVIDERS: Emergency Provider Emergency Medicine; Family Provider Family Medicine; PCP Family Medicine
DX: K22.4 Dyskinesia of esophagus (principal); R11.2 Nausea with vomiting, unspecified; F17.200 Nicotine dependence, unspecified, uncomplicated
CPT/HCPCS: 80053; 83690; 84703; 85025; 96361; 96374; 96375; 99283; J7030; A4216; J2405

== ENCOUNTER 2019-08-05 13:34 | Observation (INO) | payer OTHER, SELFPAY ==
[2019-05-27 09:44] VITALS: BMI 29.2
[2019-07-28 13:51] VITALS: BMI 27.4
[2019-08-04 09:14] LABS: Hematocrit 40.7 % (37-47); Hemoglobin 13.7 g/dL (12.0-15.0); Mean Corp Hgb Conc 33.7 g/dL (32-36); Mean Corpuscular Hgb 30.4 pg (27.0-32.0); Mean Corpuscular Volume 90.2 fL (81-99); Mean Platelet Vol. 11.1 fl (6.2-12.0); Platelet Count 258 K/mm3 (150-450); RBC Distribution Width CV 12.7 % (11.6-14.6); RBC Distribution Width SD 41.9 fl (35.1-43.9); Red Blood Count 4.51 M/mm3 (4.2-5.4); White Blood Count 6.6 K/mm3 (4.4-11.0)
[2019-08-05] VITALS (12 sets, daily range): BP systolic 109–130; BP diastolic 71–90; PULSE 83–112; RESP 16–18; TEMP 36.3–37.5; O2SAT 95–100; BMI 27.3
--- NOTE | 2019-08-05 04:06 | PCM.HPOB.BLA ---
- Problem List (1) Abnormal uterine bleeding Status: Acute Comment: discussed options, failing aygestin, switch to ocp for now and plan TVH BS with same day ERAS (2) Dysmenorrhea Status: Acute Comment: discussed options, failing aygestin, switch to ocp for now and plan TVH BS History and Physical Date of Admission: 08/05/19 Intake Vital Signs 07/28/19 Body Mass Index (BMI) 27.4 07/28/19 Height 5 ft 4 in 07/28/19 Weight: 161 lb 07/28/19 Body Mass Index (BMI) 27.6 07/28/19 Blood Pressure 124/86 H Intake Visit Reasons: ERAS TVH BS Chief Complaint: Pre Op TVH BS ERAS Horse Breeder Required: No Is patient in pain?: No Allergies Penicillins Allergy (Verified 07/28/19 13:51) Swelling Sulfa (Sulfonamide Antibiotics) Allergy (Verified 07/28/19 13:51) Swelling Medications desogestrel 0.15 mg-ethinyl estradiol 0.03 mg tablet 1 tab PO QDAY #28 tab 04/09/19 [Rx Confirmed 07/28/19] Diazepam [Valium] 2 mg PO BID PRN PRN 07/15/19 [History Confirmed 07/28/19] Hyoscyamine Sulfate 0.125 - 0.25 mg SL BID 07/15/19 [History Confirmed 07/28/19] Ondansetron [Zofran Odt] 4 mg PO Q8H PRN PRN #10 tab 07/15/19 [Rx Confirmed 07/28/19] Is last menstrual period known: No Post menopausal: No Patient : No : No [facility] Medical History Esophageal spasm (Acute) Family History Grandfather Hypertension Grandmother Hypertension Social History (Updated 07/28/19 @ 14:19 by Cher Ornelas MD) Smoking Status: Current every day smoker alcohol intake: current details: occasionally substance use type: marijuana caffeine: Yes what type of physical activity do you participate in: running, other details: rowing frequency: 5-6 times per week seatbelt use: sometimes do you feel safe at home: Yes additional social history: -Eric- [employer]s [employer] Patient works at [employer] [facility] BS: Details: KAY LEO is a 33 year old who presents for persistent AUB and dysmenorrhea, failed medical management. Female Reproductive History Questions: Metorrhagia: No, Sexually active: Yes Pregancy History 1 Elective abortions Hx Para 1 Spontaneous abortions Hx # Term Pregnancies Ectopic pregnancies Hx # Pregnancies Multiple births # of living children Past Pregnancies Del. Date Name GA/Weeks Outcome Route Bth Weight Gen Labor Lgth Anesthesia Del Locatn Provider FOB 11/26/13 Beth 40 live - full term 8lbs 6oz Male 17 hours epidural [facility] Dr. Ceci Reyes Delivery Date: 11/26/13 On 04/02/19 @ 09:24 Rachel Salazar Cord wrapped around twice. Heart murmur ROS Const Constitutional: Denies fatigue, weight gain or weight loss Cardio Card: Denies chest pain Resp Resp: Denies cough or shortness of breath with activity GI GI: Denies abdominal pain, bloating, change in stools, constipation or vomiting : Reports as per HPI; denies difficulty urinating, pelvic pain, urinary frequency, urinary incontinence, urinary urgency, vaginal discharge or vaginal itching Exam Const General: cooperative, healthy appearing, no acute distress, well developed Orientation: alert, oriented to person, oriented to place [facility] Head: normal to inspection Neck Neck: normal visual inspection Thyroid: thyroid normal Lymphatic: no lymphadenopathy noted Chest Breast inspection: normal inspection of the breasts, normal inspection of the axillae Breast palpation: normal palpation of the breasts, normal palpation of the axillae, no axillary lymphadenopathy Resp Effort & Inspection: normal respiratory effort GI Palpation: soft, no masses, nontender Rectal Exam: deferred External Female Exam: normal external appearance, normal appearance of the urethra Urethra: normal appearance of the urethra Speculum Exam - Vagina: normal appearance of the vagina, normal vaginal discharge Speculum Exam - Cervix: normal appearance of the cervix Bimanual Exam- Vagina & Uterus: normal bimanual exam, uterine size normal, uterine shape normal, uterus non-tender Bimanual Exam- Adnexa, other: normal adnexae, no adnexal masses, pelvic support normal, adnexae non-tender Pelvic Support: normal Neuro General: alert, oriented x3 Psych Affect: normal affect Assessment & Plan Problems 1. Abnormal uterine bleeding N93.9 discussed options, failing aygestin, switch to ocp for now and plan TVH BS with same day ERAS 2. Dysmenorrhea N94.6 discussed options, failing aygestin, switch to ocp for now and plan TVH BS Plan After discussing the patient's diagnosis and treatment plan options, patient wishes to proceed with surgical management. I have discussed with the patient the risks, benefits, and alternatives of the procedure which include but are not limited to risks of anesthesia, bleeding, infection, possible damage to bowel, bladder, or surrounding vasculature which could lead to additional surgery to evaluate any complications. Patient agrees to procedure and wishes to proceed. ACOG/uptodate references given for additional information regarding procedure. Coding Level of Care Code No Charge Diagnoses Abnormal uterine bleeding N93.9 Dysmenorrhea N94.6
[2019-08-05] MEDS: Scopolamine 1mg/72hr Patch 1 PATCH TRANSDERM. (07:00)
[2019-08-05] MEDS: Lactated Ringers 1,000 ML 40 ML IV (07:00)
[2019-08-05] MEDS: dexAMETHasone 10 MG/ML Vial 8 MG IV (07:00)
[2019-08-05] MEDS: Ondansetron 4 MG/2 ML Vial IV (07:00)
[2019-08-05] MEDS: Lactated Ringers 1,000 ML 70 ML IV (07:00)
[2019-08-05 09:12] LABS: Internal QC Validated? YES +Cl - CLEAR BKGD
[2019-08-05 09:16] LABS: Pregnancy, Urine Negative Negative
[2019-08-05] MEDS: Phenazopyridine 95 MG Tablet 190 MG PO (09:44)
[2019-08-05] MEDS: Acetaminophen 500 MG Tablet 1000 MG PO ×2 (09:44→15:53)
[2019-08-05] MEDS: Celecoxib 200 MG Capsule 400 MG PO (09:45)
[2019-08-05] MEDS: Gabapentin 600 MG Tablet PO (09:46)
[2019-08-05] MEDS: Enoxaparin 40 MG/0.4 ML Syringe SC (09:51)
[2019-08-05] MEDS: Magnesium Sulfate 4gm/100mL 4 GM/100 ML IV.SOLN. IV (10:07)
[2019-08-05 10:26] LABS: Bedside Glucose 82 mg/dL (70-110)
--- NOTE | 2019-08-05 11:00 | HYST_PTH ---
PATIENT: KAY LEO LOC: MS3 U#:[id number] AGE/SX: 33/F ROOM: MS318 RE08/05/[address]: Dr. Cher Ornelas MD : [id number] BED: 1 DIS: 08/05/2019 SPEC #: [id number] RECD: 08/06/19 08:59 STATUS: DEVON STALLWORTH #: [id number] ASHLEE: 08/05/19 11:[address]: Cher Ornelas DEPT: SURGICAL PATHOLOGY RECD BY: Priya Wong ENTERED: 08/06/19 09:58 SP TYPE: HYSTERECT OTHR DR: Dr. Buck Welch MD Tissues: Uterus, NOS Procedures: Surgery Specimen Level V HEADER OPERATION: ERAS, hysterectomy, vaginal, salpingectomy PRE-OP DIAGNOSIS: Abnormal uterine bleeding, dysmenorrhea TISSUE SUBMITTED: Uterus, bilateral fallopian tubes MICROSCOPIC DIAGNOSIS Uterus, hysterectomy: Cervix - nabothian cysts and mild chronic inflammation. Endometrium - proliferative with focal stromal breakdown and mild chronic inflammation Myometrium - leiomyomas and focal superficial adenomyosis. Right and left fallopian tubes - no pathologic change. AM:berna 08/07/19 MICROSCOPIC DESCRIPTION Slides are reviewed. GROSS DESCRIPTION Received in fixative is one container labeled with the patient's name and designated uterus, bilateral fallopian tubes. The specimen consists of a hysterectomy specimen consisting of uterus with cervix and detached bilateral fallopian tubes. The uterus with cervix weighs 97 gm and measures 9.5 x 6.5 x 5.5 cm. A subserosal nodule is noted. The ectocervical mucosa is unremarkable. The external os is circular in contour and covered with hemorrhagic mucoid material. The endocervical canal measures 3 cm in length and the endocervical mucosa is dennis, glistening and unremarkable. The triangular endometrial cavity measures 4.5 cm in length and 1.5 cm in width. The endometrium is dennis, congested without any mass lesion and measures 0.1 cm in thickness. Sections of the uterine wall reveal multiple intramural and subserosal nodular masses. The largest mass is subserosal in location and measures 2.5 cm in diameter. Sections of these masses reveal dennis whorled cut surfaces without areas of hemorrhage, necrosis or cystic degeneration. The uninvolved uterine wall measures up to 2.5 cm in thickness. The fallopian tubes are not identified as right or left. One of the fallopian tubes measures 2 cm in length and 0.6 cm in diameter. The fimbrial end is identified. Sections reveal unremarkable cut surfaces. A second fallopian tube predominantly consists of fimbrial end and measures 1.5 x 1.5 x 0.6 cm. Eyelet Punch Operator sections are submitted in ten cassettes as follows: 1 - anterior cervix, 2 - posterior cervix, 3 & 4 - anterior uterine wall, 5 & 6 - posterior uterine wall, 7 - largest nodular mass, 8?- smaller nodular masses, 9?&?10??each cassette containing one fallopian tube (fallopian tubes are submitted in entirety). / PETER:berna 08/06/19 TC:1 CPT: 57375
[2019-08-05] MEDS: Vasopressin 20 UNITS/ML Vial (11:43)
--- NOTE | 2019-08-05 11:45 | OP.PCM_ITS ---
Problem List (1) Abnormal uterine bleeding Status: Acute Comment: discussed options, failing aygestin, switch to ocp for now and plan TVH BS with same day ERAS (2) Dysmenorrhea Status: Acute Comment: discussed options, failing aygestin, switch to ocp for now and plan TVH BS Report of Operation Date of Procedure: 08/05/19 Pre-Operative Diagnosis: AUB Post-Operative Diagnosis: same Surgery/Procedure Performed:: tvh bs Description of Surgical Findings:: uterus tubes normal airplane flight attendant: Destiny Bear Type of Anesthesia:: General Special Medications: none Specimen's removed: uterus tubes Drains: yuan Estimated Blood Loss (mL): 100 Fluids Replaced: crystalloid Description of Procedure: Patient was taken to the operating room and was placed under general anesthesia was prepped and draped in normal sterile fashion in the dorsal lithotomy position. Preoperative antibiotics and SCDs and Yuan catheter was placed inside the bladder. Weighted speculum was placed in the vagina and the anterior and posterior lip of the cervix was grasped with 2 Paul clamps and circumferentially injected with dilute vasopressin. A circumferential incision was made with a scalpel and the posterior cul-de-sac was entered into sharply and a longneck speculum was placed. The anterior cul-de-sac was also dissected down and entered into sharply and the uterosacral ligaments were clamped cut and suture ligated bilaterally followed by the cardinal ligaments which were Clamped cut and suture ligated bilaterally with 0 Monocryl. The uterus serially descended and progressive bites were taken bilaterally up to the level of the utero-ovarian ligament bilaterally which was clamped transected and double ligated with 0 Monocryl suture and 0 Vicryl free tie. Bilateral fallopian tubes and ovaries were well visualized and noted be within normal limits and the bilateral fallopian tubes were transected across the base with a Rocio clamp and removed and sutured with 0 Vicryl suture. Excellent hemostasis was noted. Posterior peritoneum was reapproximated with The vagina which was closed with f [id number] 0 Vicryl pop offs including the posterior and anterior peritoneum in the reapproximation. Excellent hemostasis was noted. All instruments removed from the vagina clear urine was noted at the end of the procedure and patient was awoken and taken recovery in stable condition. - Complications none - Admit VTE Documentation VTE Present on Admission: No Multi Select Codes - Urinary/Genital Urinary/Genital CPT Codes: 47973 TVH+BS/O <250gr uterus
--- NOTE | 2019-08-05 12:53 | DCINST_ITS ---
Discharge Diet: No Restrictions Discharge Activity: Return to Normal Activity, May Not Drive, May Shower May resume sexual activity in: 6-8 weeks Call your doctor if your incision/area has: Continuous Slow Oozing, Sudden Increased Bleeding, Increased Pain/ Swelling, Increased Redness, Foul Smelling Discharge Call your doctor if you observe: Fever of 101 or Higher, Inability to urinate, Inability to have a bowel movement, Using more than one pad per hour Allergies/Adverse Reactions: Allergies Penicillins Allergy (Verified 08/05/19 09:42) Swelling Sulfa (Sulfonamide Antibiotics) Allergy (Verified 08/05/19 09:42) Swelling Medications to take at Discharge desogestrel 0.15 mg-ethinyl estradiol 0.03 mg tablet 1 tab PO QDAY #28 tab 04/09/19 Diazepam [Valium] 2 mg PO BID PRN PRN 07/15/19 Hyoscyamine Sulfate 0.125 - 0.25 mg SL BID 07/15/19 Lidocaine HCl [Lidocaine HCl Viscous] 15 ml PO TID PRN 07/29/19 Omeprazole [Prilosec] 40 mg PO DAILY 07/29/19 Sucralfate 1 gm PO BID 07/29/19 Naproxen [Naprosyn] 250 - 500 mg PO Q8H PRN PRN #30 tab 08/05/19 Oxycodone HCl/Acetaminophen [Percocet 5-325] 1 - 2 tab PO Q6H PRN PRN 7 Days #15 tab 08/05/19 The following prescriptions were given: Naproxen [Naprosyn] 250 - 500 mg PO Q8H PRN PRN #30 tab PRN Reason: MILD PAIN Transmission Status: Received by [facility] Oxycodone HCl/Acetaminophen [Percocet 5-325] 1 - 2 tab PO Q6H PRN PRN 7 Days #15 tab PRN Reason: Pain Transmission Status: Received by [facility] Primary Care Physician: Buck Welch MD [Primary Care Provider] - Test Results: Test results from this visit will be discussed in further detail at your follow- up appointment, if applicable. Please Follow Up With: Cher Ornelas MD - [phone]
[2019-08-05] MEDS: oxyCODONE 5 MG Tablet PO (14:01)
[2019-08-05 15:10] LABS: Hematocrit 39.7 % (37-47); Hemoglobin 13.5 g/dL (12.0-15.0); Mean Corpuscular Hgb 30.3 pg (27.0-32.0); Mean Corpuscular Volume 89.2 fL (81-99); Mean Platelet Vol. 11.1 fl (6.2-12.0); Platelet Count 269 K/mm3 (150-450); RBC Distribution Width CV 12.1 % (11.6-14.6); RBC Distribution Width SD 39.9 fl (35.1-43.9); Red Blood Count 4.45 M/mm3 (4.2-5.4); White Blood Count 13.5 K/mm3 (4.4-11.0)
[2019-08-05] MEDS: Ketorolac 30 MG/ML Syringe IV (18:12)
== END 2019-08-05 18:53 | disposition home or self-care (01) ==
LOC: SDC 15:04
PROVIDERS: Anesthesiology; Admitting Provider Obstetrics & Gynecology; Family Provider Family Medicine; PCP Family Medicine; Referring Provider Obstetrics & Gynecology; Visit Provider Obstetrics & Gynecology
PROC: (CPT 58260; principal; 2019-08-05 10:40)
DX: D25.9 Leiomyoma of uterus, unspecified (principal); N93.9 Abnormal uterine and vaginal bleeding, unspecified; N94.6 Dysmenorrhea, unspecified; Z79.899 Other long term (current) drug therapy; F41.9 Anxiety disorder, unspecified; F32.9 Major depressive disorder, single episode, unspecified; K21.9 Gastro-esophageal reflux disease without esophagitis; F17.200 Nicotine dependence, unspecified, uncomplicated
CPT/HCPCS: 58262; 36415; 81025; 82962; 85027; 86850; 86900; 86901; 88307; 96374; 99218; J7120; G0378; G0379; J2405

== ENCOUNTER 2019-08-24 08:19 | Emergency (ER) | payer OTHER, SELFPAY ==
[2019-08-19 13:12] VITALS: BMI 27.3
[2019-08-24 08:20] VITALS: BP 153/95; PULSE 99; RESP 16; TEMP 36.4; O2SAT 100; BMI 28.3
--- NOTE | 2019-08-24 08:41 | ED.VIS.GEN ---
History of Present Illness Chief Complaint: Nausea/Vomiting/Diarrhea Informant: Patient Onset: Weeks, - - Worse since 10 PM last evening Current Severity: Moderate Maximum Severity: Moderate Narrative: Patient presents with complaint of nausea, vomiting, and diarrhea. She had a hysterectomy [address] Ware. She had had some mild vomiting after her surgery but was told that was normal from the anesthesia. Symptoms significantly worsened at 10 PM last evening. She now also has diarrhea. She has not noted a fever. She has no urinary symptoms. She noted some increased pain along her lower abdomen at her surgery site after vomiting. - Past Medical History (1) GERD (gastroesophageal reflux disease) Status: Chronic (2) Anxiety Status: Chronic (3) Depression Status: Chronic Past Medical History - Allergies and Home Meds Allergies/Adverse Reactions: Allergies Penicillins Allergy (Verified 08/24/19 08:22) Swelling Sulfa (Sulfonamide Antibiotics) Allergy (Verified 08/24/19 08:22) Swelling Primary Care Physician: Buck Welch MD [Primary Care Provider] - As Needed Prior records reviewed: Yes Surgical History: hysterectomy Lives: With Family Smoking Status: Current every day smoker Review of Systems General: Denies: Chills, Fever Eyes: Denies: Visual changes - bilaterally ENT: Denies: Bilateral ear pain Cardiovascular: Denies: Chest pain Respiratory: Denies: Dyspnea, Cough Gastrointestinal: Reports: Abdominal pain, Nausea, Vomiting, Diarrhea Genitourinary: Denies: Dysuria, Hematuria Musculoskeletal: Denies: Back pain, Extremity Pain Skin: Denies: Rash Neurological: Denies: Headache Allergy: Denies: Uticaria Physical Exam Vital Signs/Narrative: Vital Signs Temp Pulse Resp BP Pulse Ox 08/24/19 08:20 97.5 F L 99 16 153/95 H 100 Inital Vital Signs reviewed: Yes General: Well nourished, Well developed Head: Normocephalic ENT: Moist mucous membranes Neck: Supple Cardiovascular: Regular rate, Regular rhythm Respiratory: No distress, CTA bilaterally Abdomen: Soft, Tender - Tenderness across the lower abdomen., Hypoactive bowel sounds. Negative for: Guarding, Rebound tenderness Extremities: Nontender Skin: Normal color, No rash Neurological: Alert, Oriented x3 Psychological: Normal affect Diagnostic/Tx/Re-eval Impressions Abdomen/Pelvis CT 08/24/19 10:42 IMPRESSION: 1. No demonstrated acute process as described above. 2. Status post hysterectomy. Probable small bilateral adnexal cysts better evaluated by ultrasound. 3. Gallstones. 4. Left renal cyst. Electronically Signed: Larry Joseph MD at 11:34 EST Tel , Service support , 08/24/19 10:42 Abdomen/Pelvis without Cont [CT] Stat Laboratory Results 08/24/19 08/24/19 08/24/19 08:40 08:40 09:53 WBC 11.6 H RBC 4.85 Hgb 14.4 Hct 43.2 MCV 89.1 MCH 29.7 MCHC 33.3 RDW Std Deviation 40.4 RDW Coeff of Júnior 12.4 Plt Count 289 MPV 10.9 Immature Gran % (Auto) 0.300 Neut % (Auto) 71.4 H Lymph % (Auto) 16.9 L [place] % (Auto) 9.0 Eos % (Auto) 2.0 Baso % (Auto) 0.4 Absolute Neuts (auto) 8.3 H Absolute Lymphs (auto) 1.96 Nucleated RBC % 0 Sodium 142 Potassium 3.9 Chloride 109 H Carbon Dioxide 26.0 Anion Gap 7 BUN 9 Creatinine 0.79 Estim Creat Clear Calc 84.57 Est GFR (MDRD) Af Amer 108 Est GFR (MDRD) Non-Af 89 BUN/Creatinine Ratio 11.4 Glucose 100 Calcium 8.9 Total Bilirubin 0.20 Direct Bilirubin 0.08 AST 9 L ALT 25 Alkaline Phosphatase 59 Total Protein 7.5 Albumin 3.6 Globulin 3.9 Lipase 173 Urine Color Yellow Urine Clarity Sl. Cloudy Urine pH 6.5 Ur Specific [employer] 1.015 Urine Protein Negative Urine Glucose (UA) Normal Urine Ketones Negative Urine Occult Blood Negative Urine Nitrite Negative Urine Bilirubin Negative Urine Urobilinogen Normal Ur Leukocyte Esterase 25 H Urine RBC 0 SEEN Urine WBC 0-5 SEEN Ur Squamous Epith Cells 5-10 SEEN Calcium Oxalate Crystal RARE Urine Bacteria 2+ Urine Mucus 0 SEEN - Medical Decision Making Patient was initially given a dose of Toradol and Zofran followed by morphine and Phenergan due to continued pain and nausea. Test results are discussed with the patient. I see no significant intra-abdominal cause for her symptoms. She likely has a viral gastro-and pulled some of the scar tissue from her recent hysterectomy. She is given a prescription for Zofran and Phenergan at home along with a few tabs of [place] for breakthrough pain. ED Disposition - Plan for ED Patient: Disposition: Home or Assisted Living Diagnosis: Gastroenteritis, Post-op pain Instructions: POST OP WOUND CHECK, Pain, GASTROENTERITIS, Viral (8y-Adult) Prescriptions: Hydrocodone Bitart/Apap 5-325 [[place] 5MG-325MG] 1 tab PO Q6H PRN PRN 3 Days #10 tab PRN Reason: Pain Prescription Printed proMETHazine tablet [Phenergan] 25 mg PO Q6H PRN PRN #10 tab PRN Reason: Nausea Prescription Printed Ondansetron [Zofran Odt] 4 mg PO Q8H PRN PRN #10 tab PRN Reason: Nausea Prescription Printed Referrals: Buck Welch MD [Primary Care Provider] - As Needed
[2019-08-24 08:51] LABS: Absolute Lymphocyte Count 1.96 X10^3/uL (0.83-4.51); Absolute Neutrophil Count 8.3 X10^3/uL (2.0-7.7); Basophil# 0.05 X10^3/uL; Basophil% 0.4 % (0-1); Eosinophil# 0.23 X10^3/uL; Hematocrit 43.2 % (37-47); Hemoglobin 14.4 g/dL (12.0-15.0); Lymphocyte # 1.96 X10^3/ul (4.0); Lymphocyte % 16.9 % (19-41); Mean Corp Hgb Conc 33.3 g/dL (32-36); Mean Corpuscular Hgb 29.7 pg (27.0-32.0); Mean Corpuscular Volume 89.1 fL (81-99); Mean Platelet Vol. 10.9 fl (6.2-12.0); Monocyte# 1.04 X10^3/uL; NRBC Flagged by Analyzer 0 % (0-5); Neutrophil # 8.27 X10^3/uL (2.7-7.7); Neutrophil % 71.4 % (47-70); Platelet Count 289 K/mm3 (150-450); RBC Distribution Width CV 12.4 % (11.6-14.6); RBC Distribution Width SD 40.4 fl (35.1-43.9); Red Blood Count 4.85 M/mm3 (4.2-5.4); White Blood Count 11.6 K/mm3 (4.4-11.0)
[2019-08-24] MEDS: 0.9% Normal Saline 1,000 ML 150 ML IV (09:01)
[2019-08-24] MEDS: Ketorolac 30 MG/ML Syringe IV (09:02)
[2019-08-24] MEDS: Ondansetron 4 MG/2 ML Vial IV (09:02)
[2019-08-24 09:05] LABS: AST(SGOT) 9 U/L (15-37); Alanine Aminotransfer ALT/SGPT 25 U/L (13-56); Albumin, Serum 3.6 g/dL (3.2-5.0); Alkaline Phosphatase 59 U/L (45-117); Anion Gap 7 (5-15); BUN 9 mg/dL (7-18); BUN/Creat Ratio 11.4 RATIO (10-20); Bilirubin, Direct 0.08 mg/dL (0.00-0.30); Calcium,Total 8.9 mg/dL (8.5-10.1); Chloride 109 mmol/L (98-107); Creatinine, Serum 0.79 mg/dL (0.55-1.02); EST Glomerular Filtration Rate 89 mL/min (>60); Est Glom Filt Rate - Afr Amer 108 mL/min (>60); Estimated Creatinine Clearance 84.57 ml/min; Globulin 3.9 g/dL (2.2-4.2); Glucose 100 mg/dL (74-106); Lipase 173 U/L (73-393); Potassium 3.9 mmol/L (3.5-5.1); Protein, Total 7.5 g/dL (6.4-8.2); Sodium Level 142 mmol/L (136-145)
[2019-08-24 10:00] LABS: Mucous, Urine 0 SEEN /hpf (<or=2+); Red Blood Cells-Urine 0 SEEN /hpf (0-5)
[2019-08-24 10:03] LABS: Color, Urine Yellow (Yellow); Glucose, Dipstick Normal (Normal); Ketone-Dipstick Negative (Negative); Leukocyte Esterase-Dipstick 25 /ul (Negative); Nitrite-Dipstick Negative (Negative); Occult Blood-Urine Negative /ul (Negative); Protein-Dipstick Negative (Negative); Specific Gravity, Urine 1.015 (1.002-1.030); Urine Bilirubin Dipstick Negative (Negative); Urine Clarity Sl. Cloudy (Clear); Urine Urobilinogen Normal (Normal); Urine pH 6.5 (5.0 - 8.0)
[2019-08-24 10:11] LABS: Bacteria 2+ /hpf (None Seen); Calcium Oxalate Crystals Ur RARE /hpf (<or=2+); Squamous Epithelial Cells - UA 5-10 SEEN /hpf (5-10); White Blood Cells 0-5 SEEN /hpf (0-5)
[2019-08-24] MEDS: proMETHazine 25 MG/ML Syringe 12.5 MG IV (10:37)
--- NOTE | 2019-08-24 10:42 | CT_ITS ---
STUDY: CT ABDOMEN AND PELVIS WITHOUT CONTRAST REASON FOR EXAM: Female, 34 years old. Nausea, vomiting and diarrhea, history of hysterectomy 2 weeks ago. RADIATION DOSAGE (If Supplied By Facility): CTDIvol = ( 6.83 ) mGy, DLP = ( 332.94 ) mGycm TECHNIQUE: Transaxial images were obtained from the dome of the diaphragm to the symphysis pubis without oral contrast, and without intravenous contrast. Sagittal and coronal images were reconstructed. Individualized dose optimization techniques were used for this CT. COMPARISON: 09/20/2017. FINDINGS: The visualized lung bases are unremarkable. The visualized portions of the heart are within normal limits. Normal liver. There are gallstones. Normal spleen. Normal pancreas. Normal bilateral adrenal glands. Normal right kidney. There again is a low-density lesion/cyst in the upper pole of the left kidney unchanged since the prior exam measuring about 2 cm. Normal visualized stomach. Normal small intestine. There is mild fecal retention. The descending colon is suboptimally distended. The appendix is visualized and appears normal. Normal abdominal aorta. Normal inferior vena cava. Normal retroperitoneum. Normal urinary bladder. There is absence of the uterus consistent with a prior hysterectomy. There are probable small bilateral adnexal cysts. The adnexal regions are better evaluated by ultrasound. There is a small umbilical hernia containing fat. There are minimal degenerative changes in the spine. CT/Abdomen/Pelvis without Cont IMPRESSION: 1. No demonstrated acute process as described above. 2. Status post hysterectomy. Probable small bilateral adnexal cysts better evaluated by ultrasound. 3. Gallstones. 4. Left renal cyst. Electronically Signed: Larry Joseph MD at 11:34 EST Tel , Service support ,
[2019-08-24] MEDS: Morphine 4 MG/ML Syringe IV (10:58)
[2019-08-24 11:40] VITALS: BP 136/87; PULSE 78; RESP 18; TEMP 37
[2019-08-24] MEDS: Mag Hydrox/Al Hydrox/Simeth 30 ML UDC PO (11:40)
== END 2019-08-24 12:52 | disposition home or self-care (01) ==
PROVIDERS: Emergency Provider Emergency Medicine; Family Provider Family Medicine; PCP Family Medicine
DX: K52.9 Noninfective gastroenteritis and colitis, unspecified (principal); Z90.710 Acquired absence of both cervix and uterus; K80.20 Calculus of gallbladder without cholecystitis without obstruction; N28.1 Cyst of kidney, acquired; K21.9 Gastro-esophageal reflux disease without esophagitis; F17.200 Nicotine dependence, unspecified, uncomplicated
CPT/HCPCS: 74176; 80048; 80076; 81001; 83690; 85025; 96361; 96374; 96375; 99282; J7030; A4216; J2405

== ENCOUNTER 2020-01-18 19:01 | Emergency (ER) | payer OTHER, SELFPAY ==
[2019-09-16 13:40] VITALS: BMI 28.3
[2020-01-18 19:03] VITALS: BP 145/101; PULSE 71; RESP 19; TEMP 35.7; O2SAT 98; BMI 27.1
--- NOTE | 2020-01-18 19:20 | ED.VISSUMM ---
- ER Visit Summary Date of Service: 01/18/20 Chief Complaint: Epigastric abdominal pain with nausea and vomiting History of Present Illness: The patient is a 34 F history of gallstones and a hiatal hernia. Also anxiety. Patient states she has had nausea vomiting since around 10 AM this morning with epigastric abdominal pain. Has never had pancreatitis. Denies any fever. No hematemesis or melena. No diarrhea. No dysuria. States she took Zofran at home without relief. She also took a GI cocktail without relief. Prior upper endoscopy showed a hiatal hernia otherwise according to the patient was unremarkable. Physical Examination: Young female no acute distress vital signs are stable. H EENT exam mild dry mucous membranes. Was unremarkable. Neck nontender no JVD. Lungs are to auscultation bilaterally. Heart regular rate and rhythm no murmur. Abdomen soft. Nondistended. Normal bowel sounds no peritoneal signs. Complains epigastric discomfort but no reproducible pain either in epigastric region or right upper quadrant. No Vences sign. No right lower quadrant tenderness. No hernias or masses. No signs of obstruction. Patient moving all 4 extremities. Neurovascular intact. No edema. Neurologically she is awake alert with no focal motor deficits. Test Results: White count 11. Hemoglobin 14. No bands. Chemistries normal normal creatinine gap. Liver enzymes unremarkable ALT of 60 AST of 39. Lipase normal at 124. Emergency Department Course and Treatment: Patient treated with IV fluids and IV Phenergan. Labs will be obtained due to her history of gallstones. But clinically at this time she is a benign abdomen. Patient also was treated with morphine IV for pain. Repeat exam at 8:30 PM patient still nausea and vomiting. She is receiving morphine and a second dose of Phenergan and will be reassessed. We went over her negative laboratory work-up. Repeat exam at 10:04 PM patient is doing well. Abdomen is benign. She is pain-free. Her nausea is resolved. Treatment Plan: Follow-up with primary care physician. Zofran for nausea. Disposition: Discharge Impression: Acute nausea and vomiting with epigastric abdominal pain of uncertain etiology This note was generated with Sky[employer] dictation software. It may contain incorrect words, spelling, and punctuation that were not noted in review of the chart prior to signing ED Disposition - Plan for ED Patient: Referrals: Buck Welch MD [Primary Care Provider] -
[2020-01-18] MEDS: 0.9% Normal Saline 1,000 ML 1000 ML IV (19:49)
[2020-01-18] MEDS: proMETHazine 25 MG/ML Syringe 12.5 MG IV (19:49)
[2020-01-18 19:56] LABS: Absolute Lymphocyte Count 1.35 X10^3/uL (0.83-4.51); Absolute Neutrophil Count 8.8 X10^3/uL (2.0-7.7); Basophil# 0.05 X10^3/uL; Basophil% 0.5 % (0-1); Eosinophil# 0.03 X10^3/uL; Eosinophils% 0.3 % (0-5); Hematocrit 43.2 % (37-47); Hemoglobin 14.6 g/dL (12.0-15.0); Lymphocyte # 1.35 X10^3/ul (4.0); Lymphocyte % 12.2 % (19-41); Mean Corp Hgb Conc 33.8 g/dL (32-36); Mean Corpuscular Hgb 30.7 pg (27.0-32.0); Mean Corpuscular Volume 90.9 fL (81-99); Mean Platelet Vol. 10.7 fl (6.2-12.0); Monocyte# 0.84 X10^3/uL; Monocyte% 7.6 % (0-10); NRBC Flagged by Analyzer 0 % (0-5); Neutrophil # 8.77 X10^3/uL (2.7-7.7); Neutrophil % 79.1 % (47-70); Platelet Count 264 K/mm3 (150-450); RBC Distribution Width CV 13.2 % (11.6-14.6); RBC Distribution Width SD 44.4 fl (35.1-43.9); Red Blood Count 4.75 M/mm3 (4.2-5.4); White Blood Count 11.1 K/mm3 (4.4-11.0)
[2020-01-18 20:14] LABS: ALB/GLOB Ratio 1.1 RATIO (0.9-2.4); AST(SGOT) 39 U/L (15-37); Alanine Aminotransfer ALT/SGPT 60 U/L (13-56); Albumin, Serum 4.2 g/dL (3.2-5.0); Alkaline Phosphatase 62 U/L (45-117); Anion Gap 8 (5-15); BUN 12 mg/dL (7-18); Calcium,Total 9.6 mg/dL (8.5-10.1); Chloride 103 mmol/L (98-107); EST Glomerular Filtration Rate 88 mL/min (>60); Est Glom Filt Rate - Afr Amer 107 mL/min (>60); Estimated Creatinine Clearance 83.51 ml/min; Globulin 3.8 g/dL (2.2-4.2); Glucose 97 mg/dL (74-106); Lipase 124 U/L (73-393); Potassium 3.6 mmol/L (3.5-5.1); Sodium Level 136 mmol/L (136-145)
[2020-01-18] MEDS: morphine 8 MG/ML Syringe 6 MG IV (20:31)
--- NOTE | 2020-01-18 22:06 | ED.DEP ---
ED Disposition - Plan for ED Patient: Disposition: Home or Assisted Living Instructions: ED Nausea Vomiting Adult Referrals: Buck Welch MD [Primary Care Provider] - 3-5 Days if not improving Additional Instructions: Diet increase slowly as tolerated. Use your home nausea medication as needed. Follow-up with your doctor as needed.
[2020-01-18 22:27] VITALS: BP 107/76; PULSE 74; RESP 16; O2SAT 98
--- NOTE | 2020-01-19 10:53 | DCINST.ED_ITS ---
ED Disposition - Plan for ED Patient: Disposition: Home or Assisted Living Instructions: ED Nausea Vomiting Adult Prescriptions: Ondansetron [Zofran Odt] 4 mg PO Q8H PRN PRN #10 tab PRN Reason: Nausea Transmission Status: Pending to [id number] Referrals: Buck Welch MD [Primary Care Provider] - 3-5 Days if not improving Additional Instructions: Diet increase slowly as tolerated. Use your home nausea medication as needed. Follow-up with your doctor as needed.
== END 2020-01-18 22:30 | disposition home or self-care (01) ==
PROVIDERS: Emergency Provider Emergency Medicine; PCP Family Medicine
DX: R10.13 Epigastric pain (principal); R11.2 Nausea with vomiting, unspecified; F41.9 Anxiety disorder, unspecified; Z87.19 Personal history of other diseases of the digestive system; Z79.899 Other long term (current) drug therapy; Z72.0 Tobacco use
CPT/HCPCS: 80053; 83690; 85025; 96361; 96374; 96375; 99283; J7030

== ENCOUNTER 2020-03-23 09:26 | Emergency (ER) | payer OTHER, SELFPAY ==
[2020-03-23 09:27] VITALS: BP 128/90; PULSE 100; RESP 16; TEMP 36.6; O2SAT 100; BMI 26.5
--- NOTE | 2020-03-23 09:33 | EKG12_ITS ---
Test Reason : CP Blood Pressure : / mmHG Vent. Rate : 074 BPM Atrial Rate : 074 BPM P-R Int : 142 ms QRS Dur : 074 ms QT Int : 368 ms P-R-T Axes : 045 056 049 degrees QTc Int : 408 ms Normal sinus rhythm Normal ECG Confirmed by CANDACE KRISHNA, BALAJI ([id number]), social media editor KANCHAN HAYS ([id number]) on 03/26/2020 10:54:58 AM Referred By: MARILEE Confirmed By:BALAJI MARIA MD
--- NOTE | 2020-03-23 09:34 | ED.DCSUM_ITS ---
History of Present Illness Chief Complaint: Chest Pain Informant: Patient Narrative: Patient presents the emergency room for the evaluation of chest pain. Patient describes a tightness midsternum down to just below her xiphoid process. She tells me she has a history of esophageal spasms. She tells me that symptoms began yesterday around 5 subsided during the night but then returned again today. She is tried viscous lidocaine. She is tried nitroglycerin. She has tried hydroxyzine. None of these is relieved her symptoms. She denies any recent travel or surgeries. No prior history of DVT and PE. No leg swelling. Patient denies any cough or fever. No vomiting diarrhea. Past Medical History - Allergies and Home Meds Allergies/Adverse Reactions: Allergies Penicillins Allergy (Verified 03/23/20 09:29) Swelling Sulfa (Sulfonamide Antibiotics) Allergy (Verified 03/23/20 09:29) Swelling Primary Care Physician: Art Reed MD [STAFF PHYSICIAN] - 1 Day Surgical History: hysterectomy Smoking Status: Current every day smoker Review of Systems General: Denies: Chills, Fever, Sweats Eyes: Denies: Visual changes - bilaterally, Diplopia ENT: Denies: Rhinorrhea, Sore throat Cardiovascular: Reports: Chest pain. Denies: Palpitations Respiratory: Denies: Dyspnea, Cough, Dyspnea on exertion Gastrointestinal: Denies: Abdominal pain, Nausea, Vomiting, Diarrhea, Melena, Hematochezia Genitourinary: Denies: Dysuria, Hematuria, Frequency Musculoskeletal: Denies: Back pain, Extremity Pain Skin: Denies: Rash, Wounds Neurological: Denies: Headache, Weakness, Numbness Physical Exam Vital Signs/Narrative: Vital Signs Temp Pulse Resp BP Pulse Ox 03/23/20 09:27 97.8 F 100 16 128/90 H 100 Inital Vital Signs reviewed: Yes General: Well nourished, Well developed, No Acute Distress Head: Normocephalic, Atraumatic Eyes: Perrl, EOMI ENT: Moist mucous membranes, No rhinorrhea Neck: Supple, Nontender Cardiovascular: Regular rate, No murmurs, Tachycardia Respiratory: No distress, CTA bilaterally, Chest nontender Abdomen: Soft, Nontender, Nondistended, Normal bowel sounds Back: Nontender, Normal Inspection Extremities: Nontender, No edema Skin: Normal color, No rash Neurological: Alert, Oriented x3, Cranial nerves II-XII grossly intact, Normal Strength, Normal Sensation Psychological: - - Patient appears anxious Diagnostic/Tx/Re-eval Clinical Impression(s) from Imaging Studies Chest X-Ray 03/23/20 10:05 IMPRESSION: Normal x-ray examination of the chest. Electronically Signed: Higinio Allen, at 10:37 EDT , Service support , Gallbladder Ultrasound 03/23/20 10:32 IMPRESSION: Contracted stone filled gallbladder with diffuse thickening of the gallbladder wall. Electronically Signed: Higinio Tiffany, at 11:32 EDT , Service support , Laboratory Last Values WBC 5.5 K/mm3 (4.4-11.0) 03/23/20 09:50 RBC 4.78 M/mm3 (4.2-5.4) 03/23/20 09:50 Hgb 15.3 g/dL (12.0-15.0) H 03/23/20 09:50 Hct 45.3 % (37-47) 03/23/20 09:50 MCV 94.8 fL (81-99) 03/23/20 09:50 MCH 32.0 pg (27.0-32.0) 03/23/20 09:50 MCHC 33.8 g/dL (32-36) 03/23/20 09:50 RDW Std Deviation 44.4 fl (35.1-43.9) H 03/23/20 09:50 RDW Coeff of Júnior 12.7 % (11.6-14.6) 03/23/20 09:50 Plt Count 228 K/mm3 (150-450) 03/23/20 09:50 MPV 10.4 fl (6.2-12.0) 03/23/20 09:50 Immature Gran % (Auto) 0.200 % (0.0-0.9) 03/23/20 09:50 Neut % (Auto) 66.2 % (47-70) 03/23/20 09:50 Lymph % (Auto) 22.1 % (19-41) 03/23/20 09:50 [place] % (Auto) 10.7 % (0-10) H 03/23/20 09:50 Eos % (Auto) 0.4 % (0-5) 03/23/20 09:50 Baso % (Auto) 0.4 % (0-1) 03/23/20 09:50 Absolute Neuts (auto) 3.7 X10^3/uL (2.0-7.7) 03/23/20 09:50 Absolute Lymphs (auto) 1.22 X10^3/uL (0.83-4.51) 03/23/20 09:50 Nucleated RBC % 0 % (0-5) 03/23/20 09:50 D-Dimer Quant (PE/DVT) 0.35 FEU/ug/m (0.27-0.49) 03/23/20 09:50 Sodium 140 mmol/L (136-145) 03/23/20 09:50 Potassium 3.8 mmol/L (3.5-5.1) 03/23/20 09:50 Chloride 105 mmol/L (98-107) 03/23/20 09:50 Carbon Dioxide 30.0 mmol/L (21.0-32.0) 03/23/20 09:50 Anion Gap 5 (5-15) 03/23/20 09:50 BUN 13 mg/dL (7-18) 03/23/20 09:50 Creatinine 0.78 mg/dL (0.55-1.02) 03/23/20 09:50 Estim Creat Clear Calc 85.65 ml/min 03/23/20 09:50 Est GFR (MDRD) Af Amer 109 mL/min (>60) 03/23/20 09:50 Est GFR (MDRD) Non-Af 90 mL/min (>60) 03/23/20 09:50 BUN/Creatinine Ratio 16.6 RATIO (10-20) 03/23/20 09:50 Glucose 79 mg/dL (74-106) 03/23/20 09:50 Calcium 8.5 mg/dL (8.5-10.1) 03/23/20 09:50 Total Bilirubin 0.50 mg/dL (0.20-1.00) 03/23/20 09:50 Direct Bilirubin 0.15 mg/dL (0.00-0.30) 03/23/20 09:50 AST 23 U/L (15-37) 03/23/20 09:50 ALT 36 U/L (13-56) 03/23/20 09:50 Alkaline Phosphatase 71 U/L (45-117) 03/23/20 09:50 Troponin I < 0.015 ng/mL (<0.045) 03/23/20 09:50 Total Protein 7.7 g/dL (6.4-8.2) 03/23/20 09:50 Albumin 3.8 g/dL (3.2-5.0) 03/23/20 09:50 Globulin 3.9 g/dL (2.2-4.2) 03/23/20 09:50 Lipase 117 U/L (73-393) 03/23/20 09:50 - EKG Initial EKG Interpretation: Sinus Rhythm - EKG is a normal sinus rhythm at a rate of 74 without concerning features of ACS - Medical Decision Making Case was discussed with Dr. Reed who is evaluated the patient. He gave the patient a GI cocktail the patient is feeling better. We are going to have her follow-up with Dr. Reed tomorrow. They are going to discuss cholecystectomy and EGD. I will write for a few [place] and Zofran. Return if worsening or concerns. ED Disposition - Plan for ED Patient: Disposition: Home or Assisted Living Diagnosis: Acute abdominal pain, Acute chest pain, Cholelithiasis Instructions: ED Gallstones with Biliary Colic Prescriptions: Hydrocodone Bitart/Apap 5-325 [[place] 5MG-325MG] 1 tab PO Q6H PRN PRN 3 Days #12 tab PRN Reason: Pain Prescription Printed Ondansetron [Zofran Odt] 4 mg PO Q6H PRN PRN #10 tab PRN Reason: Nausea Prescription Printed Referrals: Art Reed MD [STAFF PHYSICIAN] - 1 Day
[2020-03-23] MEDS: LORazepam 2 MG/ML Syringe 1 MG IV (09:52)
[2020-03-23 09:56] VITALS: O2SAT 99
[2020-03-23 09:59] LABS: Absolute Lymphocyte Count 1.22 X10^3/uL (0.83-4.51); Absolute Neutrophil Count 3.7 X10^3/uL (2.0-7.7); Basophil# 0.02 X10^3/uL; Basophil% 0.4 % (0-1); Eosinophil# 0.02 X10^3/uL; Eosinophils% 0.4 % (0-5); Hematocrit 45.3 % (37-47); Hemoglobin 15.3 g/dL (12.0-15.0); Lymphocyte # 1.22 X10^3/ul (4.0); Lymphocyte % 22.1 % (19-41); Mean Corp Hgb Conc 33.8 g/dL (32-36); Mean Corpuscular Volume 94.8 fL (81-99); Mean Platelet Vol. 10.4 fl (6.2-12.0); Monocyte# 0.59 X10^3/uL; Monocyte% 10.7 % (0-10); NRBC Flagged by Analyzer 0 % (0-5); Neutrophil # 3.66 X10^3/uL (2.7-7.7); Neutrophil % 66.2 % (47-70); Platelet Count 228 K/mm3 (150-450); RBC Distribution Width CV 12.7 % (11.6-14.6); RBC Distribution Width SD 44.4 fl (35.1-43.9); Red Blood Count 4.78 M/mm3 (4.2-5.4); White Blood Count 5.5 K/mm3 (4.4-11.0)
--- NOTE | 2020-03-23 10:05 | RAD_ITS ---
STUDY: X-RAY CHEST REASON FOR EXAM: Female, 34 years old. CHEST PAIN TECHNIQUE: Single AP portable view of the chest. COMPARISON: Comparison is made with prior examination in July 15, 2019. FINDINGS: EKG electrodes are seen. The lungs are clear and expanded. There is no demonstrated pleural abnormality. Normal size heart. Normal mediastinum and ximena. Normal visualized pulmonary arteries. Normal visualized aortic arch and descending thoracic aorta. Normal visualized thoracic spine. Normal visualized ribs, clavicles, and shoulders. There is no demonstrated abnormality of the visualized soft tissue structures of the upper abdomen. RAD/Chest 1 View (Portable) IMPRESSION: Normal x-ray examination of the chest. Electronically Signed: Higinio Allen, at 10:37 EDT , Service support ,
[2020-03-23 10:12] LABS: D-Dimer Quantitative (DVT/PE) 0.35 FEU/ug/m (0.27-0.49)
[2020-03-23 10:16] LABS: Anion Gap 5 (5-15); BUN 13 mg/dL (7-18); BUN/Creat Ratio 16.6 RATIO (10-20); Calcium,Total 8.5 mg/dL (8.5-10.1); Chloride 105 mmol/L (98-107); Creatinine, Serum 0.78 mg/dL (0.55-1.02); EST Glomerular Filtration Rate 90 mL/min (>60); Est Glom Filt Rate - Afr Amer 109 mL/min (>60); Estimated Creatinine Clearance 85.65 ml/min; Glucose 79 mg/dL (74-106); Potassium 3.8 mmol/L (3.5-5.1); Sodium Level 140 mmol/L (136-145)
--- NOTE | 2020-03-23 10:32 | US_ITS ---
STUDY: ABDOMINAL ULTRASOUND - RIGHT UPPER QUADRANT REASON FOR VISIT: Female, 34 years old pain TECHNIQUE: Ultrasound evaluation of the right upper quadrant was performed with real-time and static bauer-scale imaging. TECHNICAL QUALITY: Adequate. COMPARISON: None. FINDINGS: Liver: The liver measures 14.1 cm. There is increased echogenicity consistent with fatty infiltration. The bile ducts are within normal limits. There is hepatic color flow. The direction of portal flow is hepatopetal. There is no demonstrated mass lesion. Gallbladder: There is a contracted gallbladder. The gallbladder wall measures 6.3 mm. There is a positive sonographic Vences''s sign. There is no pericholecystic fluid. There are multiple echogenic structures within the gallbladder, consistent with multiple gallstones. Common Bile Duct (C.B.D.): The common bile duct measures 2.2 mm. Pancreas: There is nonvisualization of the pancreas due to overlying bowel gas. Right Kidney: Normal size of the right kidney. The right kidney measures 10.1 cm x 5.1 cm x 5.1 cm. Normal renal cortex. The right cortex measures 1.3 cm. There is no demonstrated renal mass or cyst. There is no right hydronephrosis. US/Gallbladder IMPRESSION: Contracted stone filled gallbladder with diffuse thickening of the gallbladder wall. Electronically Signed: Higinio Allen, at 11:32 EDT , Service support ,
[2020-03-23 10:57] LABS: Lipase 117 U/L (73-393)
[2020-03-23 11:08] LABS: AST(SGOT) 23 U/L (15-37); Alanine Aminotransfer ALT/SGPT 36 U/L (13-56); Albumin, Serum 3.8 g/dL (3.2-5.0); Alkaline Phosphatase 71 U/L (45-117); Bilirubin, Direct 0.15 mg/dL (0.00-0.30); Globulin 3.9 g/dL (2.2-4.2); Protein, Total 7.7 g/dL (6.4-8.2)
[2020-03-23 11:57] VITALS: BP 107/85; PULSE 71; RESP 18; O2SAT 99
[2020-03-23] MEDS: Ondansetron 4 MG/2 ML Vial IV (12:00)
[2020-03-23] MEDS: Morphine 4 MG/ML Syringe IV (12:01)
[2020-03-23] MEDS: Mag Hydrox/Al Hydrox/Simeth 30 ML UDC PO (12:19)
[2020-03-23 13:00] VITALS: BP 120/88; PULSE 65; RESP 19; O2SAT 98
[2020-03-23 13:18] VITALS: BP 120/88; PULSE 73; RESP 18; O2SAT 99
== END 2020-03-23 13:18 | disposition home or self-care (01) ==
PROVIDERS: Emergency Provider Emergency Medicine; PCP Family Medicine
DX: K80.20 Calculus of gallbladder without cholecystitis without obstruction (principal); F17.200 Nicotine dependence, unspecified, uncomplicated
CPT/HCPCS: 71045; 76705; 80048; 80076; 83690; 84484; 85025; 85379; 93005; 96374; 96375; 99285; A4216; J2405

== ENCOUNTER 2020-03-25 08:52 | Day surgery (SDC) | payer OTHER, SELFPAY ==
[2020-03-24 10:22] VITALS: BMI 26.5
--- NOTE | 2020-03-24 11:09 | HP_ITS ---
Intake Vital Signs 03/24/20 Height 5 ft 3 in 03/24/20 Weight: 152 lb 03/24/20 BMI 26.9 03/24/20 BP 130/85 H 03/24/20 Blood Pressure Location Rt brachial 03/24/20 Position Sitting 03/24/20 Respiration 18 03/24/20 Pulse 70 03/24/20 Pulse Source Monitor 03/24/20 Temp 98.5 F 03/24/20 Temp Source Temporal 03/24/20 Pulse Oximetry (%) 98 03/24/20 Oxygen Delivery Method room air Intake Visit Reasons: Gall Bladder ER F/U 03/23 Chief Complaint: Cholelithiasis Parimutuel Clerk Required: No Is patient in pain?: Yes Pain scale (1-10): 5 Allergies Penicillins Allergy (Verified 03/24/20 10:17) Swelling Sulfa (Sulfonamide Antibiotics) Allergy (Verified 03/24/20 10:17) Swelling Medications Hydrocodone Bitart/Apap 5-325 [[place] 5MG-325MG] 1 tab PO Q6H PRN PRN 3 Days #12 tab 03/23/20 [Rx Confirmed 03/24/20] Lidocaine HCl [Lidocaine HCl Viscous] 15 ml PO TID PRN PRN 03/23/20 [History Confirmed 03/24/20] Ondansetron [Zofran Odt] 4 mg PO Q6H PRN PRN #10 tab 03/23/20 [Rx Confirmed 03/24/20] hydroxyzine HCl 50 mg tablet 75 mg PO Q4H PRN PRN tab 03/24/20 [History Confirmed 03/24/20] venlafaxine 75 mg capsule,extended release 24 hr 25 mg PO DAILY cap 03/24/20 [History Confirmed 03/24/20] PFSH Medical History Cholelithiasis (Acute) Esophageal spasm (Acute) Surgical History History of total vaginal hysterectomy (TVH) (Acute ~08/05/19) Family History Grandfather Hypertension Grandmother Hypertension Father Arthritis Hypertension High cholesterol Social History (Updated 06/17/20 @ 11:[address] Art Reed MD) Smoking Status: Current every day smoker alcohol intake: current details: occasionally substance use type: marijuana caffeine: Yes what type of physical activity do you participate in: running, other details: rowing frequency: 5-6 times per week seatbelt use: sometimes do you feel safe at home: Yes additional social history: -[employer] Patient works at [employer] HPI Surgical H&P: Yes HPI: KAY LEO, is a 34 F who presents to the office today for Evaluation of abdominal pain. Patient was seen in the emergency department yesterday her complaints at that time were of tightness in the midsternal area just below her xiphoid. She has a history of esophageal spasms for which she has been taking nitro for as well as trying viscous lidocaine. She is also tried hydralazine. None of those relieved her symptoms until she got to the emergency department and at that time she was given a GI cocktail which did relieve her symptoms and she was subsequently sent home. During her work-up she had a right upper quadrant ultrasound which showed a gallbladder full of stones contracted no pericholecystic fluid and tenderness to palpation. The gallbladder wall thickness was 6 mm. The common bile duct was 2 mm. I came by to see the patient and after she got her GI cocktail was feeling better and so I said I would see her in the office tomorrow to see if her symptoms had improved. I did not do a formal consultation at that time. Since she was feeling better my hope was that she would be able to go home and we could do possibly either an EGD or Laparoscopic cholecystectomy At a later date. Today in the office she states that her esophagus feels much better however she is still having right upper quadrant abdominal tenderness and is afraid to eat. She has not been complaining of any fever or chills she has had no nausea no vomiting. ROS General General: Yes weight change and fatigue; no appetite, colon cancer, breast cancer or weakness HEENT HEENT: No difficulty swallowing, eye injury, eye surgery, swollen glands or hoarseness Endo Endocrine: No thyroid disease, diabetes mellitus, thyroid cancer, Hair loss, heat intolerance or cold intolerance Skin Skin: No rash or changing moles Breast Breast: No left breast lump, right breast lump, nipple discharge, breast pain, abnormal mammogram, abnormal US or breast enlargement Musc Musculoskeletal: No back problems, arthritis, rheumatoid arthritis, gout or joint pain Cardio Cardiovascular: No murmur, pacemaker, heart disease, atrial fibrillation, high blood pressure, heart attack, heart stent, palpitations, shortness of breat with exertion or chest pain Psych Psychiatric: Yes anxiety; no depression or hearing voices Resp Respiratory: No shortness of breath, No sleep apnea, No cough, No COPD, No asthma, No emphysema, No wheezing Gastro Gastrointestinal: Yes abdominal pain, Yes nausea or vomiting, No diarrhea, No constipation, No blood in stool, No acid reflux, No hemorrhoids, No ulcers, No gallbladder problem, No black,tarry stools [place] Hematologic: No blood thinners, No blood disorders, No bleeding, No anemia, No blood clots Neuro Neurologic: No system reviewed and no additional complaints, except as docu, No as per HPI, No abnormal walking, No abnormal hearing, No abnormal movements, No abnormal speech, No behavioral changes, No burning sensations, No confusion, No seizure-like activity, No unsteadiness, No dizziness, No localized weakness, No frequent falls, No headache(s), No lack of coordination, No loss of vision, No memory loss, No numbness, No other visual disturbances, No radiating pain, No restless legs, No sensory deficit, No fainting, No tingling, No tremor(s), No weakness, No other Exam Const General: no acute distress, well developed, well hydrated Orientation: oriented to person, oriented to place, oriented to time [facility] Head: normocephalic, atraumatic Ears: external ears normal Mouth: moist mucous membranes Eyes Sclera: sclerae normal Pupils: normal by confrontation Neck Neck: no lymphadenopathy noted Neck mass: No Thyroid: thyroid normal, symmetrical Chest Chest palpation & inspection: normal inspection of the chest Breast Palpation: No nipple discharge Resp Effort & Inspection: normal respiratory effort Auscultation: clear to auscultation bilaterally Percussion: percussion normal Cardio Rate: regular rate Rhythm: regular rhythm Heart Sounds: no murmurs GI Palpation: soft, no hepatosplenomegaly, no masses, tender Auscultation: normal bowel sounds Rectal Exam: other Other: Rectal exam deferred. Extrem General: normal to inspection, no clubbing, cyanosis or edema Assessment & Plan Problems 1. Calculus of gallbladder with acute on chronic cholecystitis without obstruction K80.12 2. Diffuse esophageal spasm K22.4 Plan Reviewed the anatomy with the patient and discussed the procedure: laparoscopic cholecystectomy with possible cholangiograms, possible open. Review risks including but not limited to bleeding, infection, hernia, bile leak, retained gallstones requiring another procedure ERCP- Endoscopic Retrograde Cholangiopancreatography, injury to another organ (bile ducts, common bile duct, small bowel, etc.) and conversion to an open procedure. All questions were answered. In my opinion this case needs to be done in an urgent fashion so that she does not go into full-blown acute cholecystitis which would make her surgery significantly more difficult and possibly need to have an open incisional cholecystectomy. After we remove her gallbladder she will need to have esophageal manometry to assess the extent of her diffuse esophageal spasms. Coding Level of Care Code Off vis,new,level 4 Diagnoses Calculus of gallbladder with acute on chronic cholecystitis without obstruction K80.12 ??Cholelithiasis location: gallbladder ??Cholecystitis acuity: acute and chronic Diffuse esophageal spasm K22.4 03/24/20 1110 <Electronically signed by Art mcgowan MD> Date _ Art Reed MD I have re-examined the patient. There are no clinical changes since date of exam.
[2020-03-25] VITALS (8 sets, daily range): BP systolic 109–135; BP diastolic 35–103; PULSE 69–92; RESP 16–18; TEMP 36.6–37.3; O2SAT 94–100; BMI 26.6
[2020-03-25] MEDS: Lactated Ringers 1,000 ML 100 ML IV ×2 (10:29→13:01)
--- NOTE | 2020-03-25 11:29 | PCM.OPRPT ---
Problem List (1) Cholelithiasis Status: Acute Qualifiers: Cholelithiasis location: gallbladder Cholecystitis presence: with cholecystitis Cholecystitis acuity: acute and chronic Biliary obstruction: without biliary obstruction Qualified Code(s): K80.12 - Calculus of gallbladder with acute and chronic cholecystitis without obstruction Report of Operation Date of Procedure: 03/25/20 Pre-Operative Diagnosis: Acute on chronic cholecystitis with cholelithiasis Post-Operative Diagnosis: Same Surgery/Procedure Performed:: Laparoscopic cholecystectomy Type of Anesthesia:: General Anesthesiologist: Elmer Lacy Specimen's removed: Gallbladder Estimated Blood Loss (mL): < 25 cc Description of Procedure: Patient was brought into the operating room and placed in the supine position. Under excellent general endotracheal ovation the abdomen was sterilely prepped and draped in usual fashion. Local was injected infraumbilically. Dissection was carried down to the fascia. The fascia is grasped with a [place]. Varies needle was placed inside the abdomen. The abdomen was insufflated to 15 torr. A 10/12 trocar was placed without difficulty. The patient was placed in the head up and rotated to the left position. A subxiphoid #5 trocar was placed, inferior to this another #5 trocar was placed, laterally a #5 trocar was placed. All of these under direct visualization without injury to underlying structures. Fundus of the gallbladder was grasped and retracted in cephalad direction. Patient had significant adhesions on her gallbladder like she had had chronic gallbladder problems for many many years. I took these down with electrocautery I grabbed the infundibulum retracted laterally and I dissected out the cystic duct cystic artery and posterior to the cystic artery. Once I had the anatomy identified I placed hemoclips proximally and distally on the duct and ligated the duct I placed hemoclips proximally and distally on the artery and ligated the artery I deliver the gallbladder from the gallbladder bed I had no spillage of bile or stones and I had excellent hemostasis I placed a specimen a specimen bag and delivered through the umbilical port without difficulty. Electrocautery was used on the liver bed to achieve good hemostasis once this was achieved I irrigated out the area and retrieved all the irrigant everything looked clean and there was no signs of any bleeding. I inspected the stomach I saw nothing that looked abnormal here. Trochars were removed good mistakes this was noted. Fascia the umbilical port was closed with a [id number] stitch of 0 Vicryl. Skin incisions were closed with subcuticular stitches of 4-0 Monocryl. Steri-Strips were applied sterile dressings were applied and the patient tolerated the procedure well. - Admit VTE Documentation VTE Present on Admission: No VTE Mechan Device Prophylaxis: SCD's VTE Pharm Prophylaxis ordered?: No Reason prophylaxis not ordered:: Treatment Not Indicated [id number]: [id number] Laparoscopic cholecystectomy
--- NOTE | 2020-03-25 11:30 | GALL_PTH ---
PATIENT: KAY LEO LOC: [facility] [place] U#:[id number] AGE/SX: 34/F ROOM: RE03/25/[address]: Dr. Art Reed MD : [id number] BED: DIS: 03/25/2020 SPEC #: [id number] RECD: 03/25/20 14:15 STATUS: DEVON REHaroon #: [id number] ASHLEE: 03/25/20 11:[address]: Art Reed DEPT: SURGICAL PATHOLOGY RECD BY: Marcial Tee ENTERED: 03/26/20 08:19 SP TYPE: EMEKA MESSER DR: Dr. Buck Welch MD Tissues: Gallbladder, NOS Procedures: Surgery Specimen Level III HEADER OPERATION: Laparoscopic cholecystectomy PRE-OP DIAGNOSIS: Calculus of gallbladder with acute on chronic cholecystitis TISSUE SUBMITTED: Gallbladder MICROSCOPIC DIAGNOSIS Gallbladder, cholecystectomy: Chronic cholecystitis and cholelithiasis. Benign periductal lymph node. AM:berna 03/29/20 MICROSCOPIC DESCRIPTION Slides are reviewed. GROSS DESCRIPTION Received is one container labeled with the patient's name and designated gallbladder. The specimen consists of a gallbladder measuring 9 x 3.5 x 3 cm. The external surface is smooth and glistening. Focally, it is granular, hemorrhagic and contains cautery artifact. The lumen of the gallbladder contains yellow-green mucoid bile and multiple green-yellow calculi ranging in size from <0.1 to 2 cm in diameter. The mucosa is bile-stained and without any mass lesions. The gallbladder wall averages 0.2 cm in thickness and is free of mass lesions. Wastewater Supervisor sections of the gallbladder and the cystic duct at margin of resection are submitted in one cassette. / AM:berna 03/26/20 TC:3 CPT: 40264
--- NOTE | 2020-03-25 11:31 | DCINST_ITS ---
Discharge Diet: Light diet - advance as tolerated Discharge Activity: May Not Drive - for 2-3 days or while taking narcotic pain medications., - - Do not drive, work heavy equipment or sign legal documents for 24 hours. May shower in (days): 1 - with the bandage in place. Additional Activity Instructions:: Pain medication may cause nausea. You should typically eat light foods as you take your pain medications. Pain medication may also cause constipation. If this is a problem for you, please discuss with your doctor. Call your doctor if your incision/area has: Continuous Slow Oozing, Sudden Increased Bleeding, Increased Pain/ Swelling, Increased Redness, Foul Smelling Discharge Call your doctor if you observe: Fever of 101 or Higher Suture Line Care: Avoid Pulling/Pushing, Avoid Pinching/Bending Additional Dressing/Incision Instructions:: Leave operative bandaids on for 2 days. When you remove dressing, leave Steri-Strips on until your follow-up appointment, or until the Steri-Strips fall off on their own. Allergies/Adverse Reactions: Allergies Penicillins Allergy (Verified 03/25/20 10:08) Swelling Sulfa (Sulfonamide Antibiotics) Allergy (Verified 03/25/20 10:08) Swelling Medications to take at Discharge Hydrocodone Bitart/Apap 5-325 [[place] 5MG-325MG] 1 tab PO Q6H PRN PRN 3 Days #12 tab 03/23/20 Lidocaine HCl [Lidocaine HCl Viscous] 15 ml PO TID PRN PRN 03/23/20 Ondansetron [Zofran Odt] 4 mg PO Q6H PRN PRN #10 tab 03/23/20 Omeprazole Magnesium [Prilosec Otc] 20 mg PO PRN PRN 03/24/20 hydroxyzine HCl 50 mg tablet 75 mg PO Q4H PRN PRN tab 03/24/20 venlafaxine 75 mg capsule,extended release 24 hr 25 mg PO DAILY cap 03/24/20 Oxycodone HCl/Acetaminophen [Percocet 5/325] 1 - 2 tablet PO Q4H PRN PRN 6 Days #30 tablet 03/25/20 The following prescriptions were given: Oxycodone HCl/Acetaminophen [Percocet 5/325] 1 - 2 tablet PO Q4H PRN PRN 6 Days #30 tablet PRN Reason: Pain Transmission Status: Received by DENIZ MALAVE-[facility] Primary Care Physician: Buck Welch MD [Primary Care Provider] - Test Results: Test results from this visit will be discussed in further detail at your follow- up appointment, if applicable. Please Follow Up With: Art Reed MD - Please call [phone] to schedule an appointment. When: 7 days after your surgery.
[2020-03-25] MEDS: Bupivacaine Mpf 0.5% 30 ML VIAL (11:41)
[2020-03-25] MEDS: oxyCODONE 5 MG Tablet 10 MG PO (14:10)
[2020-03-25] MEDS: Acetaminophen 325 MG Tablet 650 MG PO (14:10)
== END 2020-03-25 14:27 | disposition home or self-care (01) ==
LOC: SDC 08:53 → AC 08:54
PROVIDERS: Anesthesiology; PCP Family Medicine; Referring Provider Surgery; Visit Provider Surgery
PROC: (CPT 47562; principal; 2020-03-25 11:15)
DX: K80.12 Calculus of gallbladder with acute and chronic cholecystitis without obstruction (principal); K22.4 Dyskinesia of esophagus; Z11.59 Encounter for screening for other viral diseases; F41.9 Anxiety disorder, unspecified; F32.9 Major depressive disorder, single episode, unspecified; Z79.899 Other long term (current) drug therapy; F17.200 Nicotine dependence, unspecified, uncomplicated
CPT/HCPCS: 47562; 87635; 88304; G2023; J7120; J2405; U0003

== ENCOUNTER 2020-04-14 20:45 | Emergency (ER) | payer OTHER, SELFPAY ==
[2020-03-25 10:18] VITALS: BMI 26.6
[2020-04-14 20:46] VITALS: BP 132/88; PULSE 122; RESP 27; TEMP 36.6; O2SAT 98; BMI 26.9
--- NOTE | 2020-04-14 20:49 | ED.RN ---
RN CALLED FOR EWKG, PULLED OLD EKGS FOR
--- NOTE | 2020-04-14 20:50 | EKG12_ITS ---
Test Reason : CP Blood Pressure : / mmHG Vent. Rate : 124 BPM Atrial Rate : 124 BPM P-R Int : 136 ms QRS Dur : 082 ms QT Int : 294 ms P-R-T Axes : 065 075 027 degrees QTc Int : 422 ms Sinus tachycardia Otherwise normal ECG Confirmed by CHRIS KRISHNA, CHIRAG ([id number]), development editor JAIRON ABDUL ([id number]) on 04/19/2020 8:05:39 AM Referred By: LIBBY Confirmed By:CHIRAG PEREZ MD
--- NOTE | 2020-04-14 20:57 | ED.VIS.GEN ---
History of Present Illness Chief Complaint: Chest Pain Informant: Patient Narrative: 34-year-old female presents with concern for chest pain. States this began approximately 8 to 10 hours ago. States it is been persistent throughout the day. Describes it as sharp and retrosternal. Admits to dyspnea without vomiting. Admits to nausea without diaphoresis. States that she has been diagnosed with esophageal spasm. States that she took lidocaine before arrival which did not resolve her pain. Did have recent cholecystectomy at the end of last month. Denies any fever or chills. Denies any abdominal pain. Denies any urinary symptoms. Past Medical History - Allergies and Home Meds Allergies/Adverse Reactions: Allergies Penicillins Allergy (Verified 03/31/20 12:56) Swelling Sulfa (Sulfonamide Antibiotics) Allergy (Verified 03/31/20 12:56) Swelling Primary Care Physician: Buck Welch MD [Primary Care Provider] - Past Medical History: - - esophageal spasm Surgical History: cholecystectomy, hysterectomy Lives: Spouse/ Significant Other Smoking Status: Current every day smoker Alcohol: None Drugs: None Review of Systems General: Denies: Chills, Fever, Sweats Eyes: Denies: Visual changes - bilaterally, Diplopia ENT: Denies: Rhinorrhea, Sore throat Cardiovascular: Reports: Chest pain. Denies: Palpitations Respiratory: Reports: Dyspnea. Denies: Cough, Dyspnea on exertion Gastrointestinal: Reports: Nausea. Denies: Abdominal pain, Vomiting, Diarrhea, Melena, Hematochezia Genitourinary: Denies: Dysuria, Hematuria, Frequency Musculoskeletal: Denies: Back pain, Extremity Pain Skin: Denies: Rash, Wounds Neurological: Denies: Headache, Weakness, Numbness Physical Exam Vital Signs/Narrative: Vital Signs Temp Pulse Resp BP Pulse Ox 04/14/20 20:46 98 F 122 H 27 H 132/88 H 98 Inital Vital Signs reviewed: Yes General: Well nourished, Well developed, No Acute Distress Head: Normocephalic, Atraumatic Eyes: Perrl, EOMI ENT: Moist mucous membranes, No rhinorrhea Neck: Supple, Nontender Cardiovascular: Regular rhythm, No murmurs, Tachycardia Respiratory: No distress, CTA bilaterally, Chest nontender Abdomen: Soft, Nontender, Nondistended, Normal bowel sounds Back: Nontender, Normal Inspection Extremities: Nontender, No edema Skin: Normal color, No rash Neurological: Alert, Oriented x3, Cranial nerves II-XII grossly intact, Normal Strength, Normal Sensation Psychological: Normal affect, Normal Mood Diagnostic/Tx/Re-eval Clinical Impression(s) from Imaging Studies Chest X-Ray 04/14/20 21:00 IMPRESSION: Normal x-ray examination of the chest. Electronically Signed: Catherine Bautista MD at 21:16 EDT , Service support , Chest CTA 04/14/20 21:22 IMPRESSION: Negative for pulmonary embolus. Normal thoracic aorta. Normal heart, mediastinum and hilar areas. Negative for infiltrates, consolidation, atelectasis or pleural effusion. 3 mm pleural-based nodule of the anterior right upper lobe. Nodules of this size in this age group require no additional follow-up unless otherwise clinically indicated. Electronically Signed: Catherine Bautista MD at 22:00 EDT , Service support , Laboratory Data 04/14/20 04/14/20 04/14/20 20:52 20:52 20:52 WBC 9.3 RBC 4.98 Hgb 15.7 H Hct 46.2 MCV 92.8 MCH 31.5 MCHC 34.0 RDW Std Deviation 41.6 RDW Coeff of Júnior 12.1 Plt Count 306 MPV 11.0 Immature Gran % (Auto) 0.200 Neut % (Auto) 59.5 Lymph % (Auto) 28.4 Beadle % (Auto) 9.5 Eos % (Auto) 1.6 Baso % (Auto) 0.8 Absolute Neuts (auto) 5.5 Absolute Lymphs (auto) 2.64 Nucleated RBC % 0 D-Dimer Quant (PE/DVT) 0.53 H* Sodium 139 Potassium 3.6 Chloride 106 Carbon Dioxide 24.0 Anion Gap 9 BUN 8 Creatinine 0.85 Estim Creat Clear Calc 78.60 Est GFR (MDRD) Af Amer 100 Est GFR (MDRD) Non-Af 83 BUN/Creatinine Ratio 9.5 L Glucose 80 Calcium 8.8 Troponin I < 0.015 Urine Test 04/14/20 22:12 WBC RBC Hgb Hct MCV MCH MCHC RDW Std Deviation RDW Coeff of Júnior Plt Count MPV Immature Gran % (Auto) Neut % (Auto) Lymph % (Auto) Beadle % (Auto) Eos % (Auto) Baso % (Auto) Absolute Neuts (auto) Absolute Lymphs (auto) Nucleated RBC % D-Dimer Quant (PE/DVT) Sodium Potassium Chloride Carbon Dioxide Anion Gap BUN Creatinine Estim Creat Clear Calc Est GFR (MDRD) Af Amer Est GFR (MDRD) Non-Af BUN/Creatinine Ratio Glucose Calcium Troponin I Urine Test Negative - Rhythm Strip Rhythm Strip: Sinus Tach Rate: 122 Ectopy: None - EKG Initial EKG Interpretation: Sinus Tachycardia - Sinus tachycardia to 124 bpm. NH and QTC within normal limits. No evidence of ST elevation or depression at this time. - Medical Decision Making Upon arrival patient is dry heaving and tachycardic. Lungs clear. EKG nonischemic. D-dimer elevated. CTA negative other than pulmonary nodule which does not require follow-up. Patient was given a fluid bolus as well as Protonix. She was also given Zofran. This did resolve her symptoms. Will be given Protonix for home and advised to follow-up with primary care provider as well as possible gastroenterology referral. Patient asked to return for new or worsening symptoms. Agreeable and discharged home in stable condition. ED Disposition - Plan for ED Patient: Disposition: Home or Assisted Living Diagnosis: Chest pain, Esophageal spasm Instructions: ED Chest Pain Atypical Unkn Cause Prescriptions: Pantoprazole Sodium [Protonix] 40 mg PO DAILY #30 tab Transmission Status: Received by DENIZ MALAVE-[address] [facility] Referrals: Buck Welch MD [Primary Care Provider] -
--- NOTE | 2020-04-14 21:00 | RAD_ITS ---
STUDY: X-RAY CHEST REASON FOR EXAM: Female, 34 years old. CHEST PRESSURE, LOW ABD PRESSURE TECHNIQUE: 1 view COMPARISON: Prior chest radiograph of March 23, 2020 FINDINGS: The lungs are clear and expanded. There is no demonstrated pleural abnormality. Normal size heart. Normal mediastinum and ximena. Normal visualized pulmonary arteries. Normal visualized aortic arch and descending thoracic aorta. Normal visualized thoracic spine. Normal visualized ribs, clavicles, and shoulders. There is no demonstrated abnormality of the visualized soft tissue structures of the upper abdomen. RAD/Chest 1 View (Portable) IMPRESSION: Normal x-ray examination of the chest. Electronically Signed: Catherine Bautista MD at 21:16 EDT , Service support ,
[2020-04-14 21:02] LABS: Absolute Lymphocyte Count 2.64 X10^3/uL (0.83-4.51); Absolute Neutrophil Count 5.5 X10^3/uL (2.0-7.7); Basophil# 0.07 X10^3/uL; Basophil% 0.8 % (0-1); Eosinophil# 0.15 X10^3/uL; Eosinophils% 1.6 % (0-5); Hematocrit 46.2 % (37-47); Hemoglobin 15.7 g/dL (12.0-15.0); Lymphocyte # 2.64 X10^3/ul (4.0); Lymphocyte % 28.4 % (19-41); Mean Corpuscular Hgb 31.5 pg (27.0-32.0); Mean Corpuscular Volume 92.8 fL (81-99); Monocyte# 0.88 X10^3/uL; Monocyte% 9.5 % (0-10); NRBC Flagged by Analyzer 0 % (0-5); Neutrophil # 5.53 X10^3/uL (2.7-7.7); Neutrophil % 59.5 % (47-70); Platelet Count 306 K/mm3 (150-450); RBC Distribution Width CV 12.1 % (11.6-14.6); RBC Distribution Width SD 41.6 fl (35.1-43.9); Red Blood Count 4.98 M/mm3 (4.2-5.4); White Blood Count 9.3 K/mm3 (4.4-11.0)
[2020-04-14 21:20] LABS: D-Dimer Quantitative (DVT/PE) 0.53 FEU/ug/m (0.27-0.49)
--- NOTE | 2020-04-14 21:22 | CT_ITS ---
STUDY: CTA CHEST REASON FOR EXAM: Female, 34 years old. CHEST AND ABDOMEN PRESSURE,ELEVATED DDIMER,NAUSEA -- HX:GERD-HIATALHERNIA,CHOLECYSTECTOMY,HYSTERECTOMY RADIATION DOSAGE (If Supplied By Facility): CTDIvol = ( 6.47 ) mGy, DLP = ( 218.25 ) mGycm TECHNIQUE: The examination was performed with the intravenous administration of IV 75mL Isovue-370. Post-processing of the angiographic images was performed, with multiplanar reformation and 3D reconstruction. Individualized dose optimization techniques were used for this CT. COMPARISON: Portable chest exam of April 26, 2020 FINDINGS: Normal enhancement of the main pulmonary artery and right and left pulmonary arteries. Normal enhancement of the bilateral peripheral pulmonary arteries. There is no demonstrated pulmonary embolism. Normal thoracic aorta and visualized great vessels. There is no demonstrated aortic dissection. Normal heart and pericardium. Normal mediastinum. Normal hilar regions. Normal visualized trachea and bronchi. The lungs are well expanded. 3 mm pleural-based nodule of the anterior right upper lobe. Normal pleura. Normal chest wall structures. Normal osseous structures. Stable simple cyst upper pole of the left kidney. No acute findings in the uppermost abdomen. CT/CTA Chest W/WO Contrast IMPRESSION: Negative for pulmonary embolus. Normal thoracic aorta. Normal heart, mediastinum and hilar areas. Negative for infiltrates, consolidation, atelectasis or pleural effusion. 3 mm pleural-based nodule of the anterior right upper lobe. Nodules of this size in this age group require no additional follow-up unless otherwise clinically indicated. Electronically Signed: Catherine Bautista MD at 22:00 EDT , Service support ,
[2020-04-14 21:27] LABS: Anion Gap 9 (5-15); BUN 8 mg/dL (7-18); BUN/Creat Ratio 9.5 RATIO (10-20); Calcium,Total 8.8 mg/dL (8.5-10.1); Chloride 106 mmol/L (98-107); Creatinine, Serum 0.85 mg/dL (0.55-1.02); EST Glomerular Filtration Rate 83 mL/min (>60); Est Glom Filt Rate - Afr Amer 100 mL/min (>60); Glucose 80 mg/dL (74-106); Potassium 3.6 mmol/L (3.5-5.1); Sodium Level 139 mmol/L (136-145)
[2020-04-14] MEDS: Ondansetron 4 MG/2 ML Vial IV (21:34)
[2020-04-14 22:24] LABS: Internal QC Validated? YES +Cl - CLEAR BKGD; Pregnancy, Urine Negative Negative
[2020-04-14 23:07] VITALS: BP 128/78; PULSE 101; RESP 16; O2SAT 98
== END 2020-04-14 23:09 | disposition home or self-care (01) ==
PROVIDERS: Emergency Provider Emergency Medicine; PCP Family Medicine
DX: K22.4 Dyskinesia of esophagus (principal); R07.89 Other chest pain; F17.200 Nicotine dependence, unspecified, uncomplicated
CPT/HCPCS: 71045; 71275; 80048; 81025; 84484; 85025; 85379; 93005; 96365; 96375; 99284; Q9967; A4216; J2405

== ENCOUNTER 2021-01-20 21:02 | Emergency (ER) | payer OTHER, SELFPAY ==
[2021-01-20 21:03] VITALS: BP 120/85; PULSE 98; RESP 18; TEMP 36.3; O2SAT 97; BMI 29.2
[2021-01-20 22:07] LABS: Mucous, Urine 0 SEEN /hpf (<or=2+); Red Blood Cells-Urine 0 SEEN /hpf (0-5)
[2021-01-20 22:08] LABS: Absolute Lymphocyte Count 2.47 X10^3/uL (0.83-4.51); Absolute Neutrophil Count 5.1 X10^3/uL (2.0-7.7); Basophil# 0.05 X10^3/uL; Basophil% 0.6 % (0-1); Eosinophil# 0.07 X10^3/uL; Eosinophils% 0.8 % (0-5); Hematocrit 43.7 % (37-47); Lymphocyte # 2.47 X10^3/ul (0.83-4.51); Lymphocyte % 29.6 % (19-41); Mean Corp Hgb Conc 34.3 g/dL (32-36); Mean Corpuscular Volume 93.2 fL (81-99); Mean Platelet Vol. 10.4 fl (6.2-12.0); Monocyte% 8.4 % (0-10); NRBC Flagged by Analyzer 0 % (0-5); Neutrophil # 5.05 X10^3/uL (2.7-7.7); Neutrophil % 60.5 % (47-70); Platelet Count 326 K/mm3 (150-450); RBC Distribution Width CV 12.6 % (11.6-14.6); RBC Distribution Width SD 43.1 fl (35.1-43.9); Red Blood Count 4.69 M/mm3 (4.2-5.4); White Blood Count 8.4 K/mm3 (4.4-11.0)
[2021-01-20 22:12] LABS: Color, Urine Yellow (Yellow); Glucose, Dipstick Normal (Normal); Ketone-Dipstick Negative (Negative); Leukocyte Esterase-Dipstick Negative /ul (Negative); Nitrite-Dipstick Negative (Negative); Occult Blood-Urine 25 /ul (Negative); Protein-Dipstick Negative (Negative); Urine Bilirubin Dipstick Negative (Negative); Urine Clarity Clear (Clear); Urine Urobilinogen Normal (Normal); Urine pH 6.5 (5.0 - 8.0)
[2021-01-20 22:18] LABS: Bacteria 1+ /hpf (None Seen); Squamous Epithelial Cells - UA 0-5 SEEN /hpf (5-10); White Blood Cells 0-5 SEEN /hpf (0-5)
[2021-01-20 22:20] LABS: Anion Gap 5 (5-15); BUN 10 mg/dL (7-18); BUN/Creat Ratio 12.4 RATIO (10-20); Calcium,Total 8.4 mg/dL (8.5-10.1); Chloride 108 mmol/L (98-107); EST Glomerular Filtration Rate 87 mL/min (>60); Est Glom Filt Rate - Afr Amer 105 mL/min (>60); Estimated Creatinine Clearance 79.11 ml/min; Glucose 93 mg/dL (74-106); Potassium 3.8 mmol/L (3.5-5.1); Sodium Level 142 mmol/L (136-145)
[2021-01-20 22:28] LABS: Amphetamine Urine VISTA NEGATIVE (<1000 ng/mL); Barbiturate Urine VISTA NEGATIVE (< 200 ng/mL); Benzodiazepine Urine VISTA NEGATIVE (< 200 ng/mL); Cocaine Urine VISTA NEGATIVE (< 300 ng/mL); Ecstacy Urine VISTA NEGATIVE (< 500 ng/mL); Methadone Urine VISTA NEGATIVE (< 300 ng/mL); PCP Urine VISTA NEGATIVE (< 25 ng/mL); THC Urine VISTA POSITIVE (< 50 ng/mL); Vista UDS pH Range 6
--- NOTE | 2021-01-20 22:37 | ED.VISSUMM ---
- ER Visit Summary Date of Service: 01/20/21 Chief Complaint: Alcohol detox and suicidal ideation History of Present Illness: The patient is a 35 F who presents requesting alcohol detox. Patient states she drinks 3 drinks per day. Patient states she has never been through detox before. Patient states her last drink was approximately 2 hours prior to arrival. Patient denies any tremors or shaking. Patient denies any seizures. Patient denies any visual or auditory hallucinations. Patient also admits to suicidal ideation with thoughts of overdosing. Patient does have a history of depression and anxiety. Physical Examination: Vital signs are stable. Patient is afebrile. Patient is in no acute distress. Oral mucosa is pink and moist. Neck is supple. Trachea is midline. There is no JVD noted. Heart was regular rate and rhythm. Lungs are clear and equal bilaterally. Abdomen is soft. Bowel sounds are normal. There is no tenderness. There is no rebound or guarding noted. Skin is warm dry. Cranial nerves II through XII are intact. There are no focal motor or sensory deficits noted. Extremities are intact. There is no calf tenderness or edema. Test Results: CBC and basic metabolic profile were within normal limits. Urinalysis does not show any evidence of urinary tract infection. Urine tox urine was positive for cannabinoids. Serum alcohol level was 287. Emergency Department Course and Treatment: Patient will be observed in the emergency department until she is legally sober. At that time, she will be evaluated by crisis. Disposition: Care of the patient was signed out to the oncoming physician. Impression: 1. Depression with suicidal ideation 2. Alcohol intoxication 3. Alcohol dependence This note was generated with [employer] dictation software. It may contain incorrect words, spelling, and punctuation that were not noted in review of the chart prior to signing ED Disposition - Plan for ED Patient: Diagnosis: Depression with suicidal ideation, Alcohol dependence Referrals: Micheal Wilson MD [Primary Care Provider] -
[2021-01-20] MEDS: Ondansetron ODT 4 MG Tablet PO (22:49)
[2021-01-21] VITALS (8 sets, daily range): BP systolic 94–115; BP diastolic 60–72; PULSE 75–97; RESP 14–16; TEMP 36.6; O2SAT 96–99
[2021-01-21] MEDS: hydrOXYzine 10 MG Tablet PO (00:10)
--- NOTE | 2021-01-21 06:35 | ED.RN ---
crisis paged at this time for patient
--- NOTE | 2021-01-21 06:54 | ED.RN ---
crisis called back they will be in to see patient
--- NOTE | 2021-01-21 07:36 | NURSING ---
MARYLOU, CRISIS, HERE
--- NOTE | 2021-01-21 08:20 | ED.DCSUM_ITS ---
- ER Visit Summary Date of Service: 01/21/21 Please see the addendum to Dr. Gonzalez's dictation. This note was generated with [employer] software. It may contain incorrect words, spelling, and punctuation that were not noted in review of the chart prior to signing ED Disposition - Plan for ED Patient: Diagnosis: Depression with suicidal ideation, Alcohol dependence Instructions: ED Alcohol Abuse Referrals: [facility] [STAFF PHYSICIAN] - As soon as possible
== END 2021-01-21 08:45 | disposition home or self-care (01) ==
PROVIDERS: Emergency Medicine; Emergency Provider Emergency Medicine; PCP Internal Medicine
DX: F10.229 Alcohol dependence with intoxication, unspecified (principal); Y90.9 Presence of alcohol in blood, level not specified; F32.9 Major depressive disorder, single episode, unspecified; R45.851 Suicidal ideations; F41.9 Anxiety disorder, unspecified; Z79.899 Other long term (current) drug therapy; F17.200 Nicotine dependence, unspecified, uncomplicated
CPT/HCPCS: 80048; 80307; 81001; 82077; 85025; 99283; A4216

== ENCOUNTER → 2021-08-09 | Outpatient (CLI) | payer OTHER, SELFPAY | END | disposition home or self-care (01) | PROVIDERS: PCP Internal Medicine; Referring Provider Nurse Practitioner Women's Health; Visit Provider Nurse Practitioner Women's Health | DX: N76.0 Acute vaginitis (principal) | CPT/HCPCS: 87070; 87205 ==

== ENCOUNTER 2022-06-20 10:03 | Emergency (ER) | payer BC, SELFPAY ==
[2022-06-20 10:06] VITALS: BP 143/96; PULSE 69; RESP 22; TEMP 36.7; O2SAT 100; BMI 31.0
--- NOTE | 2022-06-20 10:28 | EDS_ITS ---
HPI HPI - GI History of Present Illness Chief Complaint: Abd Pain Informant: patient Abdominal Pain/Flank Pain Onset: Today Context: Sudden Onset Timing: Continuous Quality: Cramping and Stabbing Location: Diffuse Worsened by: Food Relieved by: Nothing Nausea/Vomiting/Emesis GI Symptom: Negative for Nausea or Vomiting Diarrhea/Melena/Hematochezia GI Symptom: Positive for Diarrhea; Negative for Melena or Hematochezia Associated Symptoms Associated Symptoms: Negative for Dysuria, Frequency or Hematuria Narrative Narrative: She presents with abdominal pain, nausea, vomiting, diarrhea, and chest pain that began this morning. Patient states that began when she woke up approximately 5 hours prior to arrival. Patient states she is unable to keep anything down. Patient states it is worse whenever she tries to drink water. Patient describes her pain as cramping and stabbing. Patient states the pain is diffuse but worse in the epigastric area. Patient denies any hematemesis or coffee-ground emesis. Patient denies any melena or hematochezia. Patient denies any dysuria or hematuria. Patient denies any urinary frequency. Patient states the pain does radiate up into her chest. PFSH PFSH Medical History Cholelithiasis Esophageal spasm Home Medications fluconazole 150 mg tablet 150 mg PO .COMPLEX #2 tabs 08/09/21 [Rx Last Taken Unknown] multivitamin 1 tab PO DAILY 08/09/21 [History Last Taken Unknown] ondansetron 4 mg disintegrating tablet 4 mg PO Q8H PRN PRN Nausea #10 tabs 06/20/22 [Rx Last Taken Unknown] Allergy/AdvReac Type Severity Reaction Status Date / Time Penicillins Allergy Swelling Verified 06/20/22 10:05 Sulfa (Sulfonamide Allergy Swelling Verified 06/20/22 10:05 Antibiotics) Family History Grandfather Hypertension Grandmother Hypertension Father Arthritis Hypertension High cholesterol Surgical History History of laparoscopic cholecystectomy (~03/2020) History of total vaginal hysterectomy (TVH) (~08/05/19) Social History Smoking Status: Current every day smoker tobacco type: cigarettes alcohol intake: current details: occasionally substance use type: marijuana caffeine: Yes what type of physical activity do you participate in: running and other details: rowing frequency: 5-6 times per week seatbelt use: sometimes do you feel safe at home: Yes additional social history: -Eric- [employer] Patient works at [employer] ROS ROS ED Constitutional Constitutional ED: Reports chills and subjective; Denies fever(s) Eyes Eyes: Denies blurry vision or change in vision ENT ENT ED: Denies rhinorrhea or sore throat Cardiovascular Cardiovascular: Reports chest pain; Denies palpitations Respiratory/Chest Respiratory/Chest: Denies cough or dyspnea Gastrointestinal Gastrointestinal: Reports abdominal pain, diarrhea, nausea and vomiting; Denies melena Genitourinary Genitourinary ED: Denies dysuria or hematuria Musculoskeletal Musculoskeletal: Denies back pain or neck pain Integumentary Denies abscess or rash Neurologic Neurologic: Denies headache(s) or weakness Allergic/Immunologic Allergic/Immunologic ED: Denies mouth swelling or urticaria EXAM Physical Exam Const Vital Signs: 06/20/22 10:06 Temperature 98.1 F Temperature Source Temporal Pulse Rate 69 Respiratory Rate 22 H Blood Pressure 143/96 H Blood Pressure Mean 111 Pulse Ox 100 Oxygen Delivery Method Room Air Positive well nourished and well developed General Appearance ED: well developed and NAD HEENT Reports moist mucous membranes Neck supple and no JVD Resp normal respiratory effort and clear to auscultation bilaterally Cardio regular rate, regular rhythm and no murmurs GI normal to inspection, nondistended, normoactive bowel sounds Palpation: soft and tender epigastric and LUQ; Negative for guarding or rebound tenderness present Extremity normal to inspection General Extremety ED: Negative for edema or tenderness General Extremity: Negative for edema Neuro oriented x3, CN's II-XII intact bilaterally and no sensory deficits noted Sensorium / Orientation: alert Motor Exam: strength 5/5 throughout Psych mental status grossly normal Skin no rashes or lesions noted MDM MDM MDM Narrative Medical decision making narrative: Patient was given IV fluids, morphine, and Zofran. CBC shows a slight leukocytosis of 11.1. Comprehensive metabolic profile was within normal limits. Lipase was normal. Urinalysis does not show any evidence of urinary tract infection or hematuria. EKG was obtained. On my interpretation, it showed a sinus bradycardia with a rate of 50. SC interval, QRS interval, and QTc in tervals were all normal. [place] was normal. There are no acute ST or T wave changes. On reevaluation, patient was still feeling somewhat nauseated. Patient was given a dose of Zofran. Patient requested a GI cocktail. This was ordered. Patient was advised of her findings. Patient was given a prescription for Zofran ODT. Patient was instructed to start with small amounts of fluids more frequently. Patient was instructed to advance her diet to a bland diet and then regular diet as she feels better. Patient was instructed to follow-up with her primary care physician in 3 to 5 days. Patient understood and was agreeable with the plan. All questions were answered. Lab Data Attestation: I reviewed the patient's lab results. Labs: Laboratory Results - last 24 hr 06/20/22 06/20/22 06/20/22 10:20 10:20 11:19 WBC 11.1 H RBC 4.88 Hgb 15.5 H Hct 44.9 MCV 92.0 MCH 31.8 MCHC 34.5 RDW Std Deviation 43.2 RDW Coeff of Júnior 12.7 Plt Count 326 MPV 11.1 Immature Gran % (Auto) 0.400 Neut % (Auto) 76.4 H Lymph % (Auto) 15.6 L Bowie % (Auto) 6.9 Eos % (Auto) 0.3 Baso % (Auto) 0.4 Absolute Neuts (auto) 8.5 H Absolute Lymphs (auto) 1.73 Nucleated RBC % 0 Sodium 139 Potassium 4.1 Chloride 108 H Carbon Dioxide 25.0 Anion Gap 6 BUN 13 Creatinine 0.85 Estim Creat Clear Calc 77.14 Est GFR (MDRD) Af Amer 98 Est GFR (MDRD) Non-Af 81 BUN/Creatinine Ratio 15.3 Glucose 116 H Calcium 9.1 Total Bilirubin 0.40 AST 18 ALT 28 Alkaline Phosphatase 64 Total Protein 7.6 Albumin 3.7 Globulin 3.9 Albumin/Globulin Ratio 0.9 Lipase 156 Urine Color Yellow Urine Clarity Sl. Cloudy Urine pH 6.0 Ur Specific Margie 1.015 Urine Protein Negative Urine Glucose (UA) Normal Urine Ketones 50 H Urine Occult Blood Negative Urine Nitrite Negative Urine Bilirubin Negative Urine Urobilinogen Normal Ur Leukocyte Esterase Negative Urine RBC 0 SEEN Urine WBC 0 SEEN Ur Squamous Epith Cells 0-5 SEEN Urine Bacteria 1+ Urine Mucus 0 SEEN EKG Initial EKG: Attestation: I personally reviewed and interpreted this EKG as follows: Interpretation: No Acute Injury Pattern and Sinus Bradycardia (50) Prior EKG tracings: available for review Prior: Unchanged (04/14/2020) Discharge Plan Triage Chief Complaint: Abd Pain ED Provider: Daniel Gonzalez Dx/Rx/DC Orders Clinical Impression: Nausea vomiting and diarrhea, Epigastric abdominal pain Instructions: ED Abdominal Pain Unkn Cause Fem, ED Vomiting (Adult) Prescriptions: New ondansetron [ondansetron] 4 mg tablet,disintegrating 4 mg PO Q8H PRN PRN (Reason: Nausea) Qty: 10 0RF No Action multivitamin Tablet 1 tab PO DAILY fluconazole 150 mg tablet 150 mg PO .COMPLEX Qty: 2 0RF Rx Instructions: 150 mg PO take one po now and repeat in 3 days Primary Care Provider: Buck Welch Referrals: Buck Welch MD [Primary Care Provider] - 3-5 Days Micheal Wilson MD [Med Staff - Technical Recruiter] - 3-5 Days Disposition Disposition: Home, Self Care
--- NOTE | 2022-06-20 10:32 | EKG12_ITS ---
Test Reason : abpain Blood Pressure : / mmHG Vent. Rate : 050 BPM Atrial Rate : 050 BPM P-R Int : 134 ms QRS Dur : 086 ms QT Int : 424 ms P-R-T Axes : 037 054 036 degrees QTc Int : 386 ms Sinus bradycardia with sinus arrhythmia Otherwise normal ECG Confirmed by CHRIS KRISHNA, CHIRAG ([id number]), offline editor JAIRON ABDUL ([id number]) on 06/21/2022 1:58:20 PM Referred By: Confirmed By:CHIRAG EPREZ MD
[2022-06-20 10:47] LABS: Absolute Lymphocyte Count 1.73 X10^3/uL (0.83-4.51); Absolute Neutrophil Count 8.5 X10^3/uL (2.0-7.7); Basophil# 0.05 X10^3/uL; Basophil% 0.4 % (0-1); Eosinophil# 0.03 X10^3/uL; Eosinophils% 0.3 % (0-5); Hematocrit 44.9 % (37-47); Hemoglobin 15.5 g/dL (12.0-15.0); Lymphocyte # 1.73 X10^3/ul (0.83-4.51); Lymphocyte % 15.6 % (19-41); Mean Corp Hgb Conc 34.5 g/dL (32-36); Mean Corpuscular Hgb 31.8 pg (27.0-32.0); Mean Platelet Vol. 11.1 fl (6.2-12.0); Monocyte# 0.77 X10^3/uL; Monocyte% 6.9 % (0-10); NRBC Flagged by Analyzer 0 % (0-5); Neutrophil % 76.4 % (47-70); Platelet Count 326 K/mm3 (150-450); RBC Distribution Width CV 12.7 % (11.6-14.6); RBC Distribution Width SD 43.2 fl (35.1-43.9); Red Blood Count 4.88 M/mm3 (4.2-5.4); White Blood Count 11.1 K/mm3 (4.4-11.0)
[2022-06-20] MEDS: 0.9% Normal Saline 1,000 ML 1000 ML IV (10:55)
[2022-06-20] MEDS: Morphine 4 MG/ML Syringe IV (10:56)
[2022-06-20] MEDS: Ondansetron 4 MG/2 ML Vial IV ×2 (10:56→12:21)
[2022-06-20 11:00] LABS: ALB/GLOB Ratio 0.9 RATIO (0.9-2.4); AST(SGOT) 18 U/L (15-37); Alanine Aminotransfer ALT/SGPT 28 U/L (13-56); Albumin, Serum 3.7 g/dL (3.2-5.0); Alkaline Phosphatase 64 U/L (45-117); Anion Gap 6 (5-15); BUN 13 mg/dL (7-18); BUN/Creat Ratio 15.3 RATIO (10-20); Calcium,Total 9.1 mg/dL (8.5-10.1); Chloride 108 mmol/L (98-107); Creatinine, Serum 0.85 mg/dL (0.55-1.02); EST Glomerular Filtration Rate 81 mL/min (>60); Est Glom Filt Rate - Afr Amer 98 mL/min (>60); Estimated Creatinine Clearance 77.14 ml/min; Globulin 3.9 g/dL (2.2-4.2); Glucose 116 mg/dL (74-106); Lipase 156 U/L (73-393); Potassium 4.1 mmol/L (3.5-5.1); Protein, Total 7.6 g/dL (6.4-8.2); Sodium Level 139 mmol/L (136-145)
[2022-06-20 11:30] LABS: Mucous, Urine 0 SEEN /hpf (<or=2+); Red Blood Cells-Urine 0 SEEN /hpf (0-5); White Blood Cells 0 SEEN /hpf (0-5)
[2022-06-20 11:33] LABS: Color, Urine Yellow (Yellow); Glucose, Dipstick Normal (Normal); Ketone-Dipstick 50 mg/dl (Negative); Leukocyte Esterase-Dipstick Negative /ul (Negative); Nitrite-Dipstick Negative (Negative); Occult Blood-Urine Negative /ul (Negative); Protein-Dipstick Negative (Negative); Specific Gravity, Urine 1.015 (1.002-1.030); Urine Bilirubin Dipstick Negative (Negative); Urine Clarity Sl. Cloudy (Clear); Urine Urobilinogen Normal (Normal)
[2022-06-20 11:43] LABS: Bacteria 1+ /hpf (None Seen); Squamous Epithelial Cells - UA 0-5 SEEN /hpf (5-10)
[2022-06-20] MEDS: Mag Hydrox/Al Hydrox/Simeth 30 ML UDC PO (12:21)
== END 2022-06-20 12:30 | disposition home or self-care (01) ==
PROVIDERS: Emergency Provider Emergency Medicine; PCP Family Medicine; Visit Provider Emergency Medicine
DX: R10.13 Epigastric pain (principal); R11.2 Nausea with vomiting, unspecified; R19.7 Diarrhea, unspecified; Z87.19 Personal history of other diseases of the digestive system; F17.210 Nicotine dependence, cigarettes, uncomplicated; Z90.49 Acquired absence of other specified parts of digestive tract
CPT/HCPCS: 80053; 81001; 83690; 85025; 93005; 96361; 96374; 96375; 96376; 99284; J7030; A4216; J2405

== ENCOUNTER 2022-06-21 18:33 | Emergency (ER) | payer BC, SELFPAY ==
[2022-06-21 18:35] VITALS: BP 134/78; PULSE 114; RESP 19; TEMP 36.7; O2SAT 100; BMI 30.1
--- NOTE | 2022-06-21 19:44 | EKG12_ITS ---
Test Reason : CP Blood Pressure : / mmHG Vent. Rate : 060 BPM Atrial Rate : 060 BPM P-R Int : 128 ms QRS Dur : 082 ms QT Int : 418 ms P-R-T Axes : 037 059 035 degrees QTc Int : 418 ms Normal sinus rhythm with sinus arrhythmia Normal ECG Confirmed by CHRIS KRISHNA, CHIRAG ([id number]), acquisition editor OFELIA LARA ([id number]) on 06/24/2022 9:32:46 AM Referred By: Confirmed By:CHIRAG PEREZ MD
--- NOTE | 2022-06-21 19:45 | CT_ITS ---
STUDY: CTA CHEST REASON FOR EXAM: Female, 36 years old. Chest pain RADIATION DOSAGE (If Supplied By Facility): CTDIvol = ( 12.34 ) mGy, DLP = ( 456.90 ) mGycm TECHNIQUE: The examination was performed with the intravenous administration of IV 100mL [id number]-370. Post-processing of the angiographic images was performed, with multiplanar reformation and 3D reconstruction. Individualized dose optimization techniques were used for this CT. COMPARISON: CTA chest 04/14/2020. FINDINGS: Normal enhancement of the main pulmonary artery and right and left pulmonary arteries. Normal enhancement of the bilateral peripheral pulmonary arteries. There is no demonstrated pulmonary embolism. Normal thoracic aorta and visualized great vessels. There is no demonstrated aortic dissection. Normal heart and pericardium. Normal mediastinum. Normal hilar regions. Normal visualized trachea and bronchi. The lungs are well expanded. Mild Bibasilar congestion. Normal pulmonary parenchyma. Normal pleura. Normal chest wall structures. Normal osseous structures. Normal visualized upper abdomen. CT/CTA Chest W/WO Contrast IMPRESSION: Mild congestion otherwise no acute disease Electronically Signed: Todd Merritt MD at 20:44 EDT Reading Location ID and State: [address] [place] [address] , Service support ,
[2022-06-21] MEDS: 0.9% Normal Saline 1,000 ML 1000 ML IV (19:54)
[2022-06-21] MEDS: Ondansetron 4 MG/2 ML Vial IV (19:55)
[2022-06-21] MEDS: Morphine 4 MG/ML Syringe IV (19:55)
[2022-06-21 20:14] LABS: Absolute Lymphocyte Count 1.83 X10^3/uL (0.83-4.51); Absolute Neutrophil Count 9.2 X10^3/uL (2.0-7.7); Basophil# 0.03 X10^3/uL; Basophil% 0.3 % (0-1); Eosinophil# 0.02 X10^3/uL; Eosinophils% 0.2 % (0-5); Hematocrit 45.4 % (37-47); Hemoglobin 15.7 g/dL (12.0-15.0); Lymphocyte # 1.83 X10^3/ul (0.83-4.51); Lymphocyte % 15.3 % (19-41); Mean Corp Hgb Conc 34.6 g/dL (32-36); Mean Corpuscular Hgb 31.5 pg (27.0-32.0); Mean Corpuscular Volume 91.2 fL (81-99); Mean Platelet Vol. 11.6 fl (6.2-12.0); Monocyte# 0.82 X10^3/uL; Monocyte% 6.9 % (0-10); NRBC Flagged by Analyzer 0 % (0-5); Neutrophil # 9.23 X10^3/uL (2.7-7.7); Platelet Count 321 K/mm3 (150-450); RBC Distribution Width CV 12.6 % (11.6-14.6); RBC Distribution Width SD 41.6 fl (35.1-43.9); Red Blood Count 4.98 M/mm3 (4.2-5.4)
[2022-06-21 20:26] LABS: Partial Thromboplast Time 28.6 Seconds (24.1-36.2)
[2022-06-21] MEDS: HYDROmorphone 1 MG/ML Syringe 0.5 MG IV (20:28)
[2022-06-21 20:33] LABS: AST(SGOT) 39 U/L (15-37); Alanine Aminotransfer ALT/SGPT 54 U/L (13-56); Albumin, Serum 3.9 g/dL (3.2-5.0); Alkaline Phosphatase 67 U/L (45-117); Anion Gap 11 (5-15); BUN 12 mg/dL (7-18); BUN/Creat Ratio 13.1 RATIO (10-20); Calcium,Total 9.3 mg/dL (8.5-10.1); Chloride 102 mmol/L (98-107); Creatinine, Serum 0.92 mg/dL (0.55-1.02); EST Glomerular Filtration Rate 74 mL/min (>60); Est Glom Filt Rate - Afr Amer 90 mL/min (>60); Estimated Creatinine Clearance 71.27 ml/min; Globulin 3.9 g/dL (2.2-4.2); Glucose 96 mg/dL (74-106); Lipase 132 U/L (73-393); Potassium 3.7 mmol/L (3.5-5.1); Protein, Total 7.8 g/dL (6.4-8.2); Sodium Level 138 mmol/L (136-145); Troponin-I HS 5 pg/mL (3.0-54.0)
[2022-06-21 20:34] VITALS: BP 119/73; PULSE 69; RESP 20; O2SAT 98
[2022-06-21 20:51] LABS: International Normalized Ratio 1.1; Prothrombin Time (Protime)PT. 13.6 SECONDS (11.7-14.9)
--- NOTE | 2022-06-21 21:33 | CT_ITS ---
STUDY: CT ABDOMEN AND PELVIS WITHOUT CONTRAST REASON FOR EXAM: Female, 36 years old. Abdominal pain RADIATION DOSAGE (If Supplied By Facility): CTDIvol = ( 8.82 ) mGy, DLP = ( 462.80 ) mGycm TECHNIQUE: Transaxial images were obtained from the dome of the diaphragm to the symphysis pubis without oral contrast, and without intravenous contrast. Sagittal and coronal images were reconstructed. Individualized dose optimization techniques were used for this CT. COMPARISON: August 24, 2019 FINDINGS: There are mild interstitial increased opacities of the lungs. The visualized portions of the heart are within normal limits. Normal liver. There is cholecystectomy. Normal spleen. Normal pancreas. Normal bilateral adrenal glands. Normal right kidney. There is 2.4 cm cyst of the left kidney. Normal visualized stomach. Normal small intestine. Normal colon. The appendix is visualized and appears normal. Normal abdominal aorta. Normal inferior vena cava. Normal retroperitoneum. Normal urinary bladder. There is absence of the uterus consistent with a prior hysterectomy. There is no free fluid in the abdomen or pelvis. Normal abdominal wall. There is left sacroiliac spurring and sclerosis. CT/Abdomen/Pelvis without Cont IMPRESSION: No mass or obstruction. No hydronephrosis. Postoperative changes. Electronically Signed: Dewayne Hoover MD at 22:18 EDT ,
[2022-06-21 22:00] VITALS: BP 155/100; PULSE 60; RESP 16; O2SAT 95
[2022-06-21] MEDS: Mag Hydrox/Al Hydrox/Simeth 30 ML UDC PO (22:01)
[2022-06-21 22:36] VITALS: BP 119/61; PULSE 91; RESP 21; O2SAT 94
--- NOTE | 2022-06-21 23:04 | EDS_ITS ---
HPI History of Present Illness Chief Complaint: Chest Pain Informant: patient Onset/Context/Timing Onset: Days Context: Gradual Onset Timing: Continuous Quality: Throbbing Location: Chest and epigastric area Current Severity: Severe Maximum Severity: Severe Worsened by: Nothing Relieved by: Nothing Narrative Narrative: Patient presents with chest pain and epigastric pain that became worse today. Patient was seen here for this yesterday and had normal laboratory findings. Patient describes her pain as throbbing. Patient states it is over the epigastric area and radiates up into her chest. Patient admits to some s hortness of breath. Patient admits to some subjective chills. Patient admits to nausea and vomiting. Patient denies any diaphoresis. Patient denies any fevers. Patient states nothing makes it better nothing makes it worse. PFSH [facility] Medical History Cholelithiasis Esophageal spasm Home Medications fluconazole 150 mg tablet 150 mg PO .COMPLEX #2 tabs 08/09/21 [Rx Last Taken Unknown] multivitamin 1 tab PO DAILY 08/09/21 [History Last Taken Unknown] ondansetron 4 mg disintegrating tablet 4 mg PO Q8H PRN PRN Nausea #10 tabs 06/20/22 [Rx Last Taken Unknown] hydrocodone-acetaminophen 5-325mg 5mg-325mg 1 tab PO Q6H PRN PRN Pain 3 days #10 TABLETS 06/21/22 [Rx Last Taken Unknown] sucralfate 1 gram tablet (Carafate) 1 g PO BID #20 tabs 06/21/22 [Rx Last Taken Unknown] Allergy/AdvReac Type Severity Reaction Status Date / Time Penicillins Allergy Swelling Verified 06/21/22 18:34 Sulfa (Sulfonamide Allergy Swelling Verified 06/21/22 18:34 Antibiotics) Family History Grandfather Hypertension Grandmother Hypertension Father Arthritis Hypertension High cholesterol Surgical History History of laparoscopic cholecystectomy (~03/2020) History of total vaginal hysterectomy (TVH) (~08/05/19) Social History Smoking Status: Current every day smoker tobacco type: cigarettes alcohol intake: current details: occasionally substance use type: marijuana caffeine: Yes what type of physical activity do you participate in: running and other details: rowing frequency: 5-6 times per week seatbelt use: sometimes do you feel safe at home: Yes additional social history: -Eric- [employer] Patient works at [employer] ROS ROS ED Constitutional Constitutional ED: Reports chills and subjective; Denies fever(s) Eyes Eyes: Denies blurry vision or change in vision ENT ENT ED: Denies rhinorrhea or sore throat Cardiovascular Cardiovascular: Reports chest pain; Denies palpitations Respiratory/Chest Respiratory/Chest: Reports dyspnea; Denies cough Gastrointestinal Gastrointestinal: Reports nausea and vomiting; Denies abdominal pain Genitourinary Genitourinary ED: Denies dysuria or hematuria Musculoskeletal Musculoskeletal: Denies back pain or neck pain Integumentary Denies abscess or rash Neurologic Neurologic: Denies headache(s) or weakness Allergic/Immunologic Allergic/Immunologic ED: Denies mouth swelling or urticaria EXAM Physical Exam Const Vital Signs: 06/21/22 18:35 06/21/22 18:58 06/21/22 19:47 Temperature 98.0 F Temperature Source Temporal Pulse Rate 114 H Respiratory Rate 19 H Respiratory Effort Short of Breath Blood Pressure 134/78 H Blood Pressure Mean 96 Pulse Ox 100 Oxygen Delivery Method Room Air Room Air 06/21/22 20:34 06/21/22 22:00 06/21/22 22:36 Temperature Temperature Source Pulse Rate 69 60 91 Respiratory Rate 20 H 16 21 H Respiratory Effort Blood Pressure 119/73 155/100 H 119/61 Blood Pressure Mean 88 118 80 Pulse Ox 98 95 94 Oxygen Delivery Method Room Air Room Air Room Air Positive well nourished and well developed General Appearance ED: well developed and NAD HEENT normocephalic and atraumatic Eyes PERRL and EOMs intact bilaterally Neck supple and no JVD Chest Wall palpation of chest normal Resp normal respiratory effort and clear to auscultation bilaterally Effort and Inspection: Negative for respiratory distress Cardio regular rhythm and no murmurs Rate: tachycardic GI normal to inspection, nondistended, normoactive bowel sounds, soft to palpation and non-distended Palpation: tender epigastric; Negative for guarding or rebound tenderness present Extremity normal to inspection General Extremety ED: Negative for edema or tenderness General Extremity: Negative for edema Neuro oriented x3, CN's II-XII intact bilaterally and no sensory deficits noted Sensorium / Orientation: awake and alert Motor Exam: strength 5/5 throughout Psych mental status grossly normal MDM MDM MDM Narrative Medical decision making narrative: Patient was given IV fluids, morphine, and Zofran initially. EKG was obtained. On my interpretation, it showed a normal sinus rhythm with a rate of 60. HI interval, QRS interval, and QTc intervals were all normal. [place] was normal. There are no acute ST or T wave changes. CBC shows a slight leukocytosis of 12.0. This was slightly increased from yesterday. PT with INR and PTT were within normal limits. Comprehensive metabolic profile was within normal limits. High-sensitivity troponin was normal. Lipase was normal. CTA of the chest was obtained. There is no evidence of pulmonary embolism. There is some mild vascular congestion. This was interpreted by the radiologist and reviewed by myself. CT scan of the abdomen pelvis was obtained. There is no mass. There is no obstruction. There is no hydronephrosis. This was interpreted by the radiologist and reviewed by myself. Patient had minimal improvement with morphine. Patient was given a dose of Dilaudid here. Patient was also given a GI cocktail. Patient is feeling better on reevaluation. Patient was advised that this could be esophageal spasm or early ulcer disease. Patient was instructed to continue her omeprazole as prescribed. Patient was given a prescription for Carafate. Patient was instructed to use Mylanta [id number] as needed. Patient was given a prescription for a short course of [place]. Patient was instructed to follow-up with her primary care physician in 3 to 5 days. Patient was also given referral for gastroenterology. Patient understood and was agreeable with the plan. All questions were answered. Lab Data Attestation: I reviewed the patient's lab results. Labs: Laboratory Results - last 24 hr 06/21/22 06/21/22 06/21/22 19:00 19:00 19:00 WBC 12.0 H RBC 4.98 Hgb 15.7 H Hct 45.4 MCV 91.2 MCH 31.5 MCHC 34.6 RDW Std Deviation 41.6 RDW Coeff of Júnior 12.6 Plt Count 321 MPV 11.6 Immature Gran % (Auto) 0.300 Neut % (Auto) 77.0 H Lymph % (Auto) 15.3 L [place] % (Auto) 6.9 Eos % (Auto) 0.2 Baso % (Auto) 0.3 Absolute Neuts (auto) 9.2 H Absolute Lymphs (auto) 1.83 Nucleated RBC % 0 PT 13.6 INR 1.1 APTT 28.6 Sodium 138 Potassium 3.7 Chloride 102 Carbon Dioxide 25.0 Anion Gap 11 BUN 12 Creatinine 0.92 Estim Creat Clear Calc 71.27 Est GFR (MDRD) Af Amer 90 Est GFR (MDRD) Non-Af 74 BUN/Creatinine Ratio 13.1 Glucose 96 Calcium 9.3 Total Bilirubin 0.70 AST 39 H ALT 54 Alkaline Phosphatase 67 Troponin I High Sens 5 Total Protein 7.8 Albumin 3.9 Globulin 3.9 Albumin/Globulin Ratio 1.0 Lipase 132 Radiography Diagnostic Testing: Clinical Impression(s) from Imaging Studies Chest CTA 06/21/22 19:45 IMPRESSION: Mild congestion otherwise no acute disease Electronically Signed: Todd Merritt MD at 20:44 EDT Reading Location ID and State: [facility] / [place] , Service support , Abdomen/Pelvis CT 06/21/22 21:33 IMPRESSION: No mass or obstruction. No hydronephrosis. Postoperative changes. Electronically Signed: Dewayne Hoover MD at 22:18 EDT , EKG Initial EKG: Attestation: I personally reviewed and interpreted this EKG as follows: Interpretation: Sinus Rhythm (60) and No Acute Injury Pattern Prior EKG tracings: available for review Prior: Unchanged (06/20/2022) Discharge Plan Triage Chief Complaint: Chest Pain ED Provider: Daniel Gonzalez Dx/Rx/DC Orders Clinical Impression: Epigastric abdominal pain, Chest pain of uncertain etiology Instructions: ED Chest Pain, Uncertain Cause, ED Epigastric Pain Uncertain Cause Prescriptions: New sucralfate [Carafate] 1 gram tablet 1 g PO BID Qty: 20 0RF hydrocodone-acetaminophen [hydrocodone-acetaminophen] 5-325 mg tablet 1 tab PO Q6H PRN PRN (Reason: Pain) 3 Days Qty: 10 0RF No Action multivitamin Tablet 1 tab PO DAILY fluconazole 150 mg tablet 150 mg PO .COMPLEX Qty: 2 0RF Rx Instructions: 150 mg PO take one po now and repeat in 3 days ondansetron [ondansetron] 4 mg tablet,disintegrating 4 mg PO Q8H PRN PRN (Reason: Nausea) Qty: 10 0RF Primary Care Provider: Buck Welch Referrals: Buck Welch MD [Primary Care Provider] - Disposition Disposition: Home, Self Care
[2022-06-21 23:22] VITALS: BP 124/67; PULSE 70; RESP 18; O2SAT 98
== END 2022-06-21 23:23 | disposition home or self-care (01) ==
PROVIDERS: Emergency Provider Emergency Medicine; PCP Family Medicine; Visit Provider Emergency Medicine
DX: R07.9 Chest pain, unspecified (principal); Z87.19 Personal history of other diseases of the digestive system; F17.210 Nicotine dependence, cigarettes, uncomplicated; Z90.49 Acquired absence of other specified parts of digestive tract; R10.13 Epigastric pain; R06.02 Shortness of breath; R11.2 Nausea with vomiting, unspecified
CPT/HCPCS: 71275; 74176; 80053; 83690; 84484; 85025; 85610; 85730; 93005; 96361; 96374; 96375; 99285; J7030; Q9967; A4216; J2405

== ENCOUNTER 2022-06-22 12:23 | Emergency (ER) | payer BC, SELFPAY ==
[2022-06-22 12:24] VITALS: BP 162/89; PULSE 78; RESP 18; TEMP 36.4; O2SAT 99; BMI 30.1
--- NOTE | 2022-06-22 12:51 | EDS_ITS ---
HPI HPI - GI History of Present Illness Chief Complaint: Abd Pain Informant: patient and spouse/S.O. Abdominal Pain/Flank Pain Onset: Days (3) Context: Sudden Onset (4am several days ago) Timing: Continuous Quality: Aching Location: Epigastric Current Severity: Severe Maximum Severity: Severe Worsened by: Nothing Relieved by: - (gi cocktail herer in ER; nothing else) Nausea/Vomiting/Emesis GI Symptom: Positive for Nausea and Vomiting Onset: Days (3) Quality: Positive for Nonbilious; Negative for Blood streaks, Coffee ground or Hematemesis Severity: Moderate Diarrhea/Melena/Hematochezia GI Symptom: Negative for Diarrhea, Melena or Hematochezia Associated Symptoms Associated Symptoms: Negative for Dysuria, Frequency, Hematuria or Urgency Narrative Narrative: Patient presenting with severe epigastric discomfort that goes into her lower mid chest and radiates into her mid back. Associate with nausea and vomiting nonbloody. No melena or bright red blood per rectum. Due to the same symptoms she has had the last 2 days when she has been in the emergency department for the same thing both times. She has had a negative work-up. She states she daily drinks 4 or so drinks per day mostly in the late afternoon and evening, of alcohol. Always hard alcohol. This started the morning after the last drink she had, she has had none since. She is unable to get the discomfort go away. She has been taking omeprazole, she was prescribed Carafate but states she cannot keep it down because of vomiting, despite taking under the tongue Zofran's which are not helping. She states the thing that seemed to help the most with a GI cocktail. She has no new symptoms. She does not feel shaky in the mornings as if she needs to have a drink in the morning and she never does. [facility] Medical History Cholelithiasis Esophageal spasm Home Medications multivitamin 1 tab PO DAILY 08/09/21 [History Last Taken Unknown] ondansetron 4 mg disintegrating tablet 4 mg PO Q8H PRN PRN Nausea #10 tabs 06/20/22 [Rx Last Taken Unknown] hydrocodone-acetaminophen 5-325mg 5mg-325mg 1 tab PO Q6H PRN PRN Pain 3 days #10 TABLETS 06/21/22 [Rx Last Taken Unknown] sucralfate 1 gram tablet (Carafate) 1 g PO BID #20 tabs 06/21/22 [Rx Last Taken Unknown] alprazolam 0.25 mg tablet 0.25 mg PO TID 5 days #15 tabs 06/22/22 [Rx Last Taken Unknown] hyoscyamine sulfate 0.125 mg disintegrating tablet 0.125 mg PO Q6H 10 days #40 tabs 06/22/22 [Rx Last Taken Unknown] Allergy/AdvReac Type Severity Reaction Status Date / Time Penicillins Allergy Swelling Verified 06/22/22 12:24 Sulfa (Sulfonamide Allergy Swelling Verified 06/22/22 12:24 Antibiotics) Family History Grandfather Hypertension Grandmother Hypertension Father Arthritis Hypertension High cholesterol Surgical History History of laparoscopic cholecystectomy (~03/2020) History of total vaginal hysterectomy (TVH) (~08/05/19) Social History Smoking Status: Current every day smoker tobacco type: cigarettes alcohol intake: current details: occasionally substance use type: marijuana caffeine: Yes what type of physical activity do you participate in: running and other details: rowing frequency: 5-6 times per week seatbelt use: sometimes do you feel safe at home: Yes additional social history: -Eric- [employer] Patient works at [employer] ROS ROS ED Constitutional Constitutional ED: Denies chills or fever(s) Eyes Eyes: Denies change in vision or diplopia ENT ENT ED: Denies rhinorrhea or sore throat Cardiovascular Cardiovascular: Denies chest pain or palpitations Respiratory/Chest Respiratory/Chest: Denies cough or dyspnea Gastrointestinal Gastrointestinal: Reports abdominal pain, nausea and vomiting; Denies diarrhea, hematemesis, hematochezia or melena Genitourinary Genitourinary ED: Denies dysuria or hematuria Musculoskeletal Musculoskeletal: Denies back pain or neck pain Integumentary Denies abscess or rash Neurologic Neurologic: Denies headache(s), paresthesias or weakness Psychiatric Psychiatric: Denies anxiety or suicidal thoughts EXAM Physical Exam Const Vital Signs: 06/22/22 12:24 06/22/22 14:24 06/22/22 16:42 Temperature 97.5 F L Temperature Source Temporal Pulse Rate 78 69 Respiratory Rate 18 16 Blood Pressure 162/89 H 138/80 H Blood Pressure Mean 113 Pulse Ox 99 Oxygen Delivery Method Room Air Positive well nourished and well developed General Appearance ED: well developed and NAD HEENT Reports moist mucous membranes normocephalic and atraumatic Eyes PERRL and EOMs intact bilaterally Neck full ROM and supple Resp normal respiratory effort and clear to auscultation bilaterally Cardio regular rate, regular rhythm and no murmurs GI non-distended GI Narrative: Tender in epigastrium without guarding or rebound along with mild tenderness in the left upper quadrant, no other areas of tenderness. Auscultation: normoactive bowel sounds Palpation: soft Back/Spine no CVA tenderness General Back: other FROM Extremity normal to inspection General Extremety ED: Negative for edema, pulses abnormal or tenderness General Extremity: Negative for edema or pulses abnormal Neuro oriented x3, CN's II-XII intact bilaterally and no sensory deficits noted Sensorium / Orientation: awake and alert Motor Exam: strength 5/5 throughout Psych mental status grossly normal and thought process normal Mood & Affect: anxious Skin no rashes or lesions noted and no wounds MDM MDM MDM Narrative Medical decision making narrative: Patient is here had thorough work-up in the last 2 days this being her third visit for the same thing. I did repeat her lipase, it is normal for the third time. I do not think anything else needs to be repeated. This clearly is not acute pancreatitis given all of that. She does not think she has ever had pancreatitis before. That makes chronic pancreatitis a lot less likely. She states yesterday, she was given a GI cocktail and that took the pain away for about the entire night. She states it worked quickly. I gave her a GI cocktail again here, she states within minutes it gave her significant relief but it only lasted about 20 minutes or so before the discomfort ramped back up. She states it felt like it was throbbing and she could feel it in her back. She had no vomiting here after IV Reglan 5 mg. She was given Protonix 40 mg IV and considering alcoholic gastritis since her symptoms significantly improved with treating topically the mucosal lining of the stomach and esophagus. Both the way she is describing it now I considered also esophageal spasm which she states she was diagnosed with in the past. I gave her nitroglycerin in addition to dicyclomine intramuscularly and Ativan. She had relief although she was still feeling some of the discomfort. I discussed with Dr. Oneal, he advised scheduling the patient on hyoscyamine 0.125 mg every 6 hours for the next 10 days in addition to alprazolam 3 times daily. I prescribed her that for 5 days, 0.25 mg. She is comfortable this overall plan and following up, continuing her omeprazole twice daily at home and the Carafate she was prescribed yesterday. Lab Data Attestation: I reviewed the patient's lab results. Labs: Laboratory Results - last 24 hr 06/22/22 13:10 Lipase 121 Discharge Plan Triage Chief Complaint: Abd Pain Other Complaint: Chest Pain ED Provider: Dewayne Crow Dx/Rx/DC Orders Clinical Impression: Acute alcoholic gastritis, Epigastric abdominal pain, Esophageal spasm Instructions: ED Esophageal Spasm, ED Gastritis Ulcer No Abx Prescriptions: New hyoscyamine sulfate 0.125 mg tablet,disintegrating 0.125 mg PO Q6H 10 Days Qty: 40 0RF alprazolam 0.25 mg tablet 0.25 mg PO TID 5 Days Qty: 15 0RF Continued multivitamin Tablet 1 tab PO DAILY ondansetron 4 mg tablet,disintegrating 4 mg PO Q8H PRN PRN (Reason: Nausea) Qty: 10 0RF sucralfate [Carafate] 1 gram tablet 1 g PO BID Qty: 20 0RF hydrocodone-acetaminophen 5-325 mg tablet 1 tab PO Q6H PRN PRN (Reason: Pain) 3 Days Qty: 10 0RF Discontinued fluconazole 150 mg tablet 150 mg PO .COMPLEX Qty: 2 0RF Rx Instructions: 150 mg PO take one po now and repeat in 3 days Primary Care Provider: Buck Welch Referrals: Buck Welch MD [Primary Care Provider] - Raúl Oneal DO [Med Staff - Active Staff] - 1 Week if not improving Disposition Disposition: Home, Self Care
[2022-06-22] MEDS: Mag Hydrox/Al Hydrox/Simeth 30 ML UDC PO ×2 (13:00→15:23)
[2022-06-22] MEDS: Metoclopramide 10 MG/2 ML Vial 5 MG IV (13:00)
[2022-06-22 13:25] LABS: Lipase 121 U/L (73-393)
[2022-06-22 14:24] VITALS: RESP 16
[2022-06-22] MEDS: Sucralfate 1 GM Tablet PO (16:17)
[2022-06-22 16:42] VITALS: BP 138/80; PULSE 69
[2022-06-22] MEDS: Nitroglycerin SL (ED/IMG/CATH) 0.4 MG TABLET SL (16:42)
[2022-06-22] MEDS: Dicyclomine 20 MG/2 ML Vial IM (16:42)
[2022-06-22] MEDS: LORazepam 2 MG/ML Syringe 1 MG IV (16:56)
[2022-06-22] MEDS: Morphine 4 MG/ML Syringe IV (17:28)
[2022-06-22 17:37] VITALS: PULSE 70; RESP 15; O2SAT 99
== END 2022-06-22 17:37 | disposition home or self-care (01) ==
PROVIDERS: Emergency Provider Emergency Medicine; PCP Family Medicine; Visit Provider Emergency Medicine
DX: K29.20 Alcoholic gastritis without bleeding (principal); R10.13 Epigastric pain; G89.29 Other chronic pain; F17.210 Nicotine dependence, cigarettes, uncomplicated; K22.4 Dyskinesia of esophagus
CPT/HCPCS: 83690; 96361; 96365; 96372; 96375; 99284; J7040; A4216; J3490

== ENCOUNTER → 2023-09-20 | Outpatient (CLI) | payer OTHER, SELFPAY ==
--- NOTE | 2023-09-20 14:24 | US_ITS ---
STUDY: ULTRASOUND BREAST - LEFT REASON FOR EXAM: Female, 38 years old. Palpable left breast nodules. TECHNIQUE: Axial and longitudinal images of the LEFT breast were performed with a high resolution ultrasound transducer. # OF IMAGES: 127 COMPARISON: Comparison is made with prior mammogram done earlier today. FINDINGS: LEFT Breast: The left breast was evaluated with ultrasound. Multiple cysts are seen. The largest cyst measures 2.7 cm x 3.1 sign by 2.4 cm. IMPRESSION: Multiple cysts. ASSESSMENT CATEGORY: BIRADS Category 2: Benign. A letter regarding these results will be sent to the patient by the facility within 30 days. Electronically Signed: Higinio Allen MD at 10:46 EST , STUDY: ULTRASOUND BREAST - RIGHT REASON FOR EXAM: Female, 38 years old. Abnormal mammogram. TECHNIQUE: Axial and longitudinal images of the RIGHT breast were performed with a high resolution ultrasound transducer. # OF IMAGES: 127 COMPARISON: Comparison is made with prior mammograms and earlier today. FINDINGS: RIGHT Breast: Multiple cysts are seen. The largest cyst measures 2.2 cm x 2 cm x 1.2 cm. US/Breast Limited Unilateral IMPRESSION: Multiple cysts. ASSESSMENT CATEGORY: BIRADS Category 2: Benign. A letter regarding these results will be sent to the patient by the facility within 30 days. Electronically Signed: Higinio Allen MD at 10:47 EST ,
--- NOTE | 2023-09-20 14:24 | BI_ITS ---
MAMMOGRAPHY - BILATERAL DIAGNOSTIC REASON FOR EXAM: Female, 38 years old. Palpable lumps in the left breast. PERTINENT HISTORY: Aunt with breast cancer. TECHNIQUE: Digital bilateral breast leon (3D mammographic acquisition) in the CC and MLO projections. 2-D mediolateral oblique (MLO) and craniocaudad (CC) views of both breasts were obtained. CAD: Full Field Digital Mammography with Computer Added Detection was performed. COMPARISON: None. Baseline examination. FINDINGS: Breast Composition: The breasts are extremely dense, which lowers the sensitivity of mammography. Multiple well-defined nodules are seen in the left breast corresponding to the palpable abnormalities. Correlation with ultrasound is recommended. The largest nodule is in the upper lateral aspect of the breast and measures 2.8 cm x 3 cm. There is also evidence of well-defined nodules in the right breast. No other significant abnormalities are identified. BI/DIAG MAMM W/CAD, BILAT IMPRESSION: Bilateral breast nodules as described. Correlation with ultrasound of both breasts is recommended. ASSESSMENT CATEGORY: BIRADS Category 0: Incomplete. Need additional imaging evaluation. A letter regarding these results will be sent to the patient by the facility within 30 days. Approximately 10% of breast cancers are not detected by mammography. A normal mammogram should not delay biopsy of a clinically suspicious abnormality. Electronically Signed: Higinio Allen MD at 15:28 EST ,
== END | disposition home or self-care (01) ==
PROVIDERS: PCP Family Medicine; Referring Provider Internal Medicine; Visit Provider Internal Medicine
DX: N63.21 Unspecified lump in the left breast, upper outer quadrant (principal)
CPT/HCPCS: 76642; 77062; 77066; G0279

== ENCOUNTER → 2024-11-19 | Outpatient (CLI) | payer BC, SELFPAY ==
--- NOTE | 2024-11-19 09:23 | US_ITS ---
PROCEDURE: BREAST LIMITED UNILATERAL REASON FOR EXAM: Palpable abnormality in the upper-outer quadrant of the right breast. TECHNIQUE: Targeted right breast ultrasound. COMPARISON: Comparison is made with prior mammogram done earlier today. FINDINGS: RIGHT: Right breast ultrasound was targeted to the lateral aspect of the right breast.. Multiple cysts are seen. The largest cyst measures 2.3 cm x 2.3 cm x 1 cm. US/Breast Limited Unilateral IMPRESSION: Multiple cysts. BI-RADS category 2 Follow-up code: Routine Follow-up Reading Location: [place] [address]
--- NOTE | 2024-11-19 09:23 | BI_ITS ---
PROCEDURE: DIAG MAMM W/CAD, BILAT REASON FOR EXAM: F, Age 39 y/o, breast lumps. Aunt with breast cancer. TECHNIQUE: Bilateral screening digital breast tomosynthesis with 2D and 3D images. Computer aided detection. COMPARISON: Prior exam(s) dating back to June 21, 2023.. FINDINGS: The breasts are extremely dense which lowers the sensitivity of mammography. Once again, multiple nodular densities are seen in both breasts. These have been demonstrated to be cysts on prior sonogram. With the patient's history of right breast pain, targeted ultrasound recommended. No suspicious masses, areas of developing architectural distortion, or suspicious calcifications. BI/DIAG MAMM W/CAD, BILAT IMPRESSION: BI-RADS 0: INCOMPLETE - NEED ADDITIONAL IMAGING EVALUATION. Follow-up code: Sonographic follow-up. The patient will be notified of the results by letter. Reading Location: [place] [id number]
--- NOTE | 2024-11-19 09:23 | US_ITS ---
PROCEDURE: BREAST LIMITED UNILATERAL REASON FOR EXAM: Palpable lump. TECHNIQUE: Targeted left breast ultrasound. COMPARISON: Comparison is made with prior mammogram done earlier in the day. FINDINGS: LEFT: Left breast ultrasound was targeted to the lateral aspect of the breast.. Multiple cysts are seen. The largest cyst measures 2.7 cm x 2.8 cm x 1.3 cm. . US/Breast Limited Unilateral IMPRESSION: Multiple cysts. BI-RADS category 2 Follow-up code: Routine Follow-up [facility]
== END | disposition home or self-care (01) ==
PROVIDERS: PCP Family Medicine; Referring Provider Family Medicine; Visit Provider Family Medicine
DX: N60.01 Solitary cyst of right breast (principal); Z80.3 Family history of malignant neoplasm of breast; N60.02 Solitary cyst of left breast
CPT/HCPCS: 76642; 77062; 77066; G0279

== ENCOUNTER → 2025-04-02 | Outpatient (CLI) | payer BC, SELFPAY ==
--- NOTE | 2025-04-02 10:38 | RAD_ITS ---
EXAM: XR Left Shoulder Complete, 2 or More Views CLINICAL INDICATION: PAIN TECHNIQUE: Two or more views of the left shoulder. COMPARISON: No relevant prior studies available. FINDINGS: BONES/JOINTS: Unremarkable. No acute fracture. No dislocation. SOFT TISSUES: Unremarkable. RAD/Shoulder min 2 Views IMPRESSION: No acute fracture. Reading [facility]
== END | disposition home or self-care (01) ==
LOC: MTRAD 10:36
PROVIDERS: PCP Family Medicine; Referring Provider Nurse Practitioner Family; Visit Provider Nurse Practitioner Family
DX: M25.512 Pain in left shoulder (principal)
CPT/HCPCS: 73030